=== PATIENT | female | born 1950 | race Caucasian/White ===

== ENCOUNTER 2017-02-24 09:53 | Outpatient (RCR) | payer MEDICARE, OTHER, SELFPAY ==
[2017-02-24 10:23] LABS: Color, Urine Yellow (Yellow); Glucose, Dipstick Normal (Normal); Ketone-Dipstick Negative (Negative); Leukocyte Esterase-Dipstick 500 /ul (Negative); Nitrite-Dipstick Negative (Negative); Occult Blood-Urine 25 /ul (Negative); Protein-Dipstick Negative (Negative); Urine Bilirubin Dipstick Negative (Negative); Urine Clarity Sl. Cloudy (Clear); Urine Urobilinogen Normal (Normal); Urine pH 6.5 (5.0 - 8.0)
[2017-02-24 10:30] LABS: Hematocrit 45.1 % (37-47); Hemoglobin 15.2 g/dl (12.0-15.0); Mean Corp Hgb Conc 33.7 g/gl (32-36); Mean Corpuscular Volume 94.9 fL (81-99); Platelet Count 113 K/mm3 (150-450); RBC Distribution Width CV 13.2 % (11.6-14.6); RBC Distribution Width SD 44.1 fl (35.1-43.9); Red Blood Count 4.75 M/mm3 (4.2-5.4); White Blood Count 3.8 K/mm3 (4.4-11.0)
[2017-02-24 10:34] LABS: Scan Indicated on CBC? Y/N NO
[2017-02-24 10:46] LABS: Albumin, Serum 3.8 g/dL (3.4-5.0); BUN 17 mg/dL (7-18); BUN/Creat Ratio 18.7 RATIO (10-20); Calcium,Total 9.1 mg/dL (8.5-10.1); Chloride 105 mmol/L (98-107); Creatinine, Serum 0.91 mg/dL (0.55-1.02); EST Glomerular Filtration Rate 65 mL/min (>60); Est Glom Filt Rate - Afr Amer 79 mL/min (>60); Glucose 137 mg/dL (70-110); Phosphorus 2.6 mg/dL (2.5-4.9); Potassium 4.3 mmol/L (3.5-5.1); Sodium Level 139 mmol/L (136-145)
[2017-02-24 11:00] LABS: Prograf-FK506 TO CCF/UNIV MAILED SPECIMEN
== END 2017-02-24 10:00 | disposition home or self-care (01) ==
LOC: LAB 09:53
PROVIDERS: Family Provider Family Medicine; PCP Family Medicine
DX: Z94.0 Kidney transplant status (principal); N39.0 Urinary tract infection, site not specified; D89.9 Disorder involving the immune mechanism, unspecified
CPT/HCPCS: 36415; 80069; 81002; 85027; 87077; 87086; 87088; 87186

== ENCOUNTER 2017-04-04 08:21 | Outpatient (RCR) | payer MEDICARE, OTHER, SELFPAY ==
[2017-04-04 10:54] LABS: Color, Urine Yellow (Yellow); Glucose, Dipstick Normal (Normal); Ketone-Dipstick Negative (Negative); Leukocyte Esterase-Dipstick 500 /ul (Negative); Nitrite-Dipstick Negative (Negative); Occult Blood-Urine 150 /ul (Negative); Protein-Dipstick 15 mg/dl (Negative); Specific Gravity, Urine 1.015 (1.002-1.030); Urine Bilirubin Dipstick Negative (Negative); Urine Clarity Cloudy (Clear); Urine Urobilinogen Normal (Normal); Urine pH 6.5 (5.0 - 8.0)
[2017-04-04 11:36] LABS: Hematocrit 43.6 % (37-47); Hemoglobin 14.5 g/dl (12.0-15.0); Mean Corp Hgb Conc 33.3 g/gl (32-36); Mean Corpuscular Hgb 31.9 pg (27.0-32.0); Mean Corpuscular Volume 95.8 fL (81-99); Mean Platelet Vol. 10.3 fl (6.2-12.0); Platelet Count 122 K/mm3 (150-450); RBC Distribution Width CV 13.1 % (11.6-14.6); RBC Distribution Width SD 45.5 fl (35.1-43.9); Red Blood Count 4.55 M/mm3 (4.2-5.4); Scan Indicated on CBC? Y/N NO; White Blood Count 3.6 K/mm3 (4.4-11.0)
[2017-04-04 12:03] LABS: Albumin, Serum 3.4 g/dL (3.2-5.0); BUN 13 mg/dL (7-18); Chloride 102 mmol/L (98-107); Creatinine, Serum 0.82 mg/dL (0.55-1.02); EST Glomerular Filtration Rate 74 mL/min (>60); Est Glom Filt Rate - Afr Amer 90 mL/min (>60); Glucose 102 mg/dL (74-106); Potassium 4.4 mmol/L (3.5-5.1); Sodium Level 137 mmol/L (136-145)
[2017-04-07 07:46] LABS: Tacrolimus (FK506) 5.4 ng/mL (2.0-20.0)
== END 2017-04-04 09:00 | disposition home or self-care (01) ==
LOC: LAB 08:21
PROVIDERS: Family Provider Family Medicine; PCP Family Medicine
DX: D89.9 Disorder involving the immune mechanism, unspecified (principal); N39.0 Urinary tract infection, site not specified; Z94.0 Kidney transplant status
CPT/HCPCS: 36415; 80069; 80197; 81002; 85027; 87077; 87086; 87088; 87186

== ENCOUNTER → 2017-04-10 09:18 | Outpatient (CLI) | payer MEDICARE, OTHER, SELFPAY ==
[2017-04-10 18:14] LABS: Color, Urine Yellow (Yellow); Glucose, Dipstick Normal (Normal); Ketone-Dipstick Negative (Negative); Leukocyte Esterase-Dipstick 500 /ul (Negative); Nitrite-Dipstick Negative (Negative); Occult Blood-Urine 50 /ul (Negative); Protein-Dipstick Negative (Negative); Specific Gravity, Urine 1.005 (1.002-1.030); Urine Bilirubin Dipstick Negative (Negative); Urine Clarity Sl. Cloudy (Clear); Urine Urobilinogen Normal (Normal)
== END ==
PROVIDERS: Family Provider Family Medicine; PCP Family Medicine
DX: N39.0 Urinary tract infection, site not specified (principal)
CPT/HCPCS: 81002; 87077; 87086; 87088; 87186

== ENCOUNTER 2017-05-12 07:07 | Outpatient (RCR) | payer MEDICARE, OTHER, SELFPAY ==
[2017-05-12 07:21] LABS: Mucous, Urine 0 SEEN /hpf (<or=2+); Red Blood Cells-Urine 0 SEEN /hpf (0-5); Squamous Epithelial Cells - UA 0 SEEN /hpf (5-10)
[2017-05-12 07:33] LABS: Hematocrit 40.7 % (37-47); Mean Corp Hgb Conc 34.4 g/gl (32-36); Mean Corpuscular Hgb 32.3 pg (27.0-32.0); Mean Corpuscular Volume 93.8 fL (81-99); Mean Platelet Vol. 9.5 fl (6.2-12.0); Platelet Count 113 K/mm3 (150-450); RBC Distribution Width CV 12.5 % (11.6-14.6); RBC Distribution Width SD 42.1 fl (35.1-43.9); Red Blood Count 4.34 M/mm3 (4.2-5.4); White Blood Count 2.9 K/mm3 (4.4-11.0)
[2017-05-12 07:34] LABS: Scan Indicated on CBC? Y/N NO
[2017-05-12 07:39] LABS: Color, Urine Yellow (Yellow); Glucose, Dipstick Normal (Normal); Ketone-Dipstick Negative (Negative); Leukocyte Esterase-Dipstick 500 /ul (Negative); Nitrite-Dipstick Negative (Negative); Occult Blood-Urine 10 /ul (Negative); Protein-Dipstick Negative (Negative); Urine Bilirubin Dipstick Negative (Negative); Urine Clarity Clear (Clear); Urine Urobilinogen Normal (Normal)
[2017-05-12 07:55] LABS: Bacteria 1+ /hpf (None Seen); White Blood Cells 10-25 SEEN /hpf (0-5)
[2017-05-12 07:58] LABS: Albumin, Serum 3.4 g/dL (3.2-5.0); BUN 13 mg/dL (7-18); BUN/Creat Ratio 14.9 RATIO (10-20); Calcium,Total 8.4 mg/dL (8.5-10.1); Chloride 105 mmol/L (98-107); Creatinine, Serum 0.87 mg/dL (0.55-1.02); EST Glomerular Filtration Rate 69 mL/min (>60); Est Glom Filt Rate - Afr Amer 83 mL/min (>60); Glucose 93 mg/dL (74-106); Phosphorus 3.1 mg/dL (2.5-4.9); Potassium 4.2 mmol/L (3.5-5.1); Sodium Level 137 mmol/L (136-145)
[2017-05-12 08:16] LABS: Prograf-FK506 TO CCF/UNIV MAILED SPECIMEN
== END 2017-05-12 08:00 | disposition home or self-care (01) ==
LOC: LAB 07:07
PROVIDERS: Family Provider Family Medicine; PCP Family Medicine
DX: D89.9 Disorder involving the immune mechanism, unspecified (principal); Z94.0 Kidney transplant status; N39.0 Urinary tract infection, site not specified
CPT/HCPCS: 36415; 80069; 81001; 85027; 87077; 87086; 87088; 87186

== ENCOUNTER 2017-10-07 08:36 | Outpatient (RCR) | payer MEDICARE, OTHER, SELFPAY ==
[2017-10-07 09:40] LABS: Prograf-FK506 TO CCF/UNIV MAILED SPECIMEN
[2017-10-07 09:41] LABS: Hematocrit 42.5 % (37-47); Mean Corp Hgb Conc 32.9 g/gl (32-36); Mean Corpuscular Hgb 31.4 pg (27.0-32.0); Mean Corpuscular Volume 95.3 fL (81-99); Mean Platelet Vol. 9.9 fl (6.2-12.0); Platelet Count 111 K/mm3 (150-450); RBC Distribution Width CV 13.1 % (11.6-14.6); Red Blood Count 4.46 M/mm3 (4.2-5.4); White Blood Count 3.6 K/mm3 (4.4-11.0)
[2017-10-07 09:43] LABS: Color, Urine Yellow (Yellow); Glucose, Dipstick Normal (Normal); Ketone-Dipstick Negative (Negative); Leukocyte Esterase-Dipstick 500 /ul (Negative); Nitrite-Dipstick Negative (Negative); Occult Blood-Urine 25 /ul (Negative); Protein-Dipstick 15 mg/dl (Negative); Urine Bilirubin Dipstick Negative (Negative); Urine Clarity Clear (Clear); Urine Urobilinogen Normal (Normal)
[2017-10-07 09:46] LABS: Scan Indicated on CBC? Y/N NO
[2017-10-07 10:02] LABS: Albumin, Serum 3.5 g/dL (3.2-5.0); BUN 16 mg/dL (7-18); BUN/Creat Ratio 16.6 RATIO (10-20); Chloride 99 mmol/L (98-107); Creatinine, Serum 0.96 mg/dL (0.55-1.02); EST Glomerular Filtration Rate 61 mL/min (>60); Est Glom Filt Rate - Afr Amer 74 mL/min (>60); Glucose 102 mg/dL (74-106); Phosphorus 2.9 mg/dL (2.5-4.9); Potassium 4.2 mmol/L (3.5-5.1); Sodium Level 137 mmol/L (136-145)
== END 2017-10-07 10:00 | disposition home or self-care (01) ==
LOC: LAB 08:36
PROVIDERS: Family Provider Family Medicine; PCP Family Medicine
DX: D89.9 Disorder involving the immune mechanism, unspecified (principal); N39.0 Urinary tract infection, site not specified; Z94.0 Kidney transplant status
CPT/HCPCS: 36415; 80069; 81002; 85027; 87077; 87086; 87088; 87186

== ENCOUNTER 2018-01-14 08:59 | Outpatient (RCR) | payer MEDICARE, OTHER, SELFPAY ==
[2018-01-14 10:29] LABS: Color, Urine Yellow (Yellow); Glucose, Dipstick Normal (Normal); Ketone-Dipstick Negative (Negative); Leukocyte Esterase-Dipstick 500 /ul (Negative); Nitrite-Dipstick Negative (Negative); Occult Blood-Urine 25 /ul (Negative); Protein-Dipstick Negative (Negative); Specific Gravity, Urine 1.005 (1.002-1.030); Urine Bilirubin Dipstick Negative (Negative); Urine Clarity Sl. Cloudy (Clear); Urine Urobilinogen Normal (Normal)
[2018-01-14 10:31] LABS: Hematocrit 44.2 % (37-47); Hemoglobin 14.6 g/dl (12.0-15.0); Mean Corpuscular Hgb 31.3 pg (27.0-32.0); Mean Corpuscular Volume 94.8 fL (81-99); Mean Platelet Vol. 9.7 fl (6.2-12.0); Platelet Count 124 K/mm3 (150-450); RBC Distribution Width SD 44.8 fl (35.1-43.9); Red Blood Count 4.66 M/mm3 (4.2-5.4); White Blood Count 2.9 K/mm3 (4.4-11.0)
[2018-01-14 10:41] LABS: Scan Indicated on CBC? Y/N NO
[2018-01-14 10:57] LABS: Albumin, Serum 3.5 g/dL (3.2-5.0); BUN 14 mg/dL (7-18); BUN/Creat Ratio 15.3 RATIO (10-20); Calcium,Total 9.2 mg/dL (8.5-10.1); Chloride 101 mmol/L (98-107); Creatinine, Serum 0.92 mg/dL (0.55-1.02); EST Glomerular Filtration Rate 65 mL/min (>60); Est Glom Filt Rate - Afr Amer 78 mL/min (>60); Glucose 92 mg/dL (74-106); Phosphorus 2.9 mg/dL (2.5-4.9); Sodium Level 137 mmol/L (136-145)
[2018-01-17 14:21] LABS: Tacrolimus (FK506) 3.9 ng/mL (2.0-20.0)
--- OUTSIDE RECORDS SUMMARY | 2018-03-11 14:52 | XMS RPT_ITS ---
:1950 Author Organization [place] Support Name Relationship Address Phone JOSE PORTER Unavailable [id number] + [place] [address] GASTON, MANOJ Unavailable [address] + [place] [address] R Unavailable Unavailable Unavailable PORTER, JOSE Unavailable [address] + [place] [address] GASTON, MANOJ Unavailable [address] + [place] [address] R Unavailable Unavailable Unavailable PORTER, JOSE Unavailable [address] + [place] [address] GASTON, MANOJ Unavailable [address] + [place] [address] R Unavailable Unavailable Unavailable PORTER, JOSE Unavailable Unavailable + PORTER, JOSE Unavailable Unavailable + PORTER, JOSE Unavailable Unavailable + PORTER, JOSE Unavailable Unavailable + PORTER, JOSE Unavailable [address] + [place] [address] GASTON, MANOJ Unavailable [address] + [place] [address] R Unavailable Unavailable Unavailable PORTER, JOSE Unavailable [address] + [place] [address] GASTON, MANOJ Unavailable [address] + [place] [address] R Unavailable Unavailable Unavailable PORTER, JOSE Unavailable [address] + [place] [address] GASTON, MANOJ Unavailable [address] + [place] [address] R Unavailable Unavailable Unavailable JOSE PORTER Unavailable [address] + [place] [address] MANOJ FELDMAN Unavailable [address] + [place] [address] R Unavailable Unavailable Unavailable Care Team Providers Name Role Phone MARIANA ZARATE Referring Unavailable Cebul III, Irineo Primary Care Unavailable MARIANA ZARATE Attending Unavailable MARIANA ZARATE Attending Unavailable Cebul III, Irineo Primary Care Unavailable MARIANA ZARATE Referring Unavailable MARIANA ZARATE Attending Unavailable MARIANA ZARATE Referring Unavailable Cebul III, Irineo Primary Care Unavailable MARIANA ZARATE Attending Unavailable Cebul III, Irineo Primary Care Unavailable MARIANA ZARATE Attending Unavailable MARIANA ZARATE Referring Unavailable Cebul III, Irineo Primary Care Unavailable MARIANA ZARATE Attending Unavailable MARIANA ZARATE Referring Unavailable Cebul III, Irineo Primary Care Unavailable MARIANA ZARATE Attending Unavailable MARIANA ZARATE Referring Unavailable Cebul III, Irineo Primary Care Unavailable Barbie, Dr. Amy Porter Admitting Unavailable Lemonotommy, Dr. Amy Porter Attending Unavailable Sarabu, Dr. Gonzalez Referring Unavailable Cebul III, Dr. Irineo Guerrero Primary Care Unavailable Lemonotommy, Dr. Amy Porter Attending Unavailable Cebul III, Dr. 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 Barbie Active Frederic diagnosis infection, site [facility] not specified / Repository N39.0(ICD-10) 05/27/2017 Final diagnosis Urinary tract Dr. Barbie [facility] (discharge) infection, site [facility] not specified / Repository N39.0(ICD-10) 05/20/2017 Final diagnosis Kidney transplant Dr. Barbie [facility] (discharge) status / [facility] Z94.0(ICD-10) Repository 05/20/2017 Final diagnosis Decreased white Dr. Barbie [facility] (discharge) blood cell count, [facility] unspecified / Repository D72.819(ICD-10) PROCEDURES PROCEDURES No Procedure Records FoundRESULTS RESULTS URINALYSIS, ROUTINE Collected: 01/14/2018 Status: F Source: [place] (DIPSTICK) 9:07 AM [facility] REPOSITORY Order Comment: How was Urine Obtained? CLEAN CATCH TYPE CODE TESTS RESULT OUT OF RANGE REFERENCE UNITS LAB L400.3000 Yellow COLOR Normal Yellow LAB L400.3050 Clear Normal CLARITY Sl. Cloudy LAB L400.3200 Normal mg/dl Normal GLUCOSE, UR Normal LAB L400.3300 Negative mg/dL Normal BILIRUBIN URINE Negative LAB L400.3400 Negative mg/dl Normal KETONE UR Negative LAB L400.3465 1.002-1.030 Normal SP.GR. DIPSTX 1.005 LAB L400.3550 5.0 - 8.0 pH UR Normal 7.0 LAB L400.3600 Negative mg/dl PROT Normal DIPSTX Negative LAB L400.3700 Normal mg/dl Normal UROBILI Normal LAB L400.3750 Negative Normal NITRITE UR Negative LAB L400.3780 Negative /ul High 25 OCCULT BLOOD-UR LAB L400.3800 Negative /ul High LEUK ESTERASE 500 Performed By: #### L400.2010 #### [facility] [address] [place], [address] CBC-COMPLETE BLOOD CNT Collected: 01/14/2018 Status: F Source: [place] NO DIFF 9:07 AM [facility] REPOSITORY TYPE CODE TESTS RESULT OUT OF RANGE REFERENCE UNITS LAB L100.1000 4.4-11.0 K/mm3 Low WBC 2.9 LAB L100.1200 4.2-5.4 M/mm3 Normal RBC 4.66 LAB L100.1300 12.0-15.0 g/dl Normal HGB 14.6 LAB L100.1400 37-47 % Normal HCT 44.2 LAB L100.1500 81-99 fL Normal MCV 94.8 LAB L100.1600 27.0-32.0 pg Normal MCH 31.3 LAB L100.1700 32-36 g/gl Normal MCHC 33.0 LAB L100.1810 11.6-14.6 % Normal RDW CV 13.0 LAB L100.1820 35.1-43.9 fl High RDW SD 44.8 LAB L100.1900 150-450 K/mm3 Low PLT 124 LAB L100.2000 6.2-12.0 fl Normal MPV 9.7 Performed By: #### L100.0500 #### [facility] [address] [place], [address] RENAL PROFILE Collected: 01/14/2018 Status: F Source: [place] 9:07 AM [facility] REPOSITORY TYPE CODE TESTS RESULT OUT OF RANGE REFERENCE UNITS LAB L501.0100 74-106 mg/dL Normal GLU 92 Result Comment: Please note revised GLUCOSE reference range effective 2017. LAB L501.1000 7-18 mg/dL Normal BUN 14 LAB L501.1100 0.55-1.02 mg/dL Normal CREAT,SERUM 0.92 Result Comment: The validity of the calculated GFR AND GFRAA in patients over 70 years has not been determined. Clinical correlation is essential. LAB L501.1110 >60 mL/min Normal EST GFR 65 Result Comment: Non- GFR Calc LAB L501.1115 >60 mL/min Normal EST GFR - AA 78 Result Comment: GFR Calc LAB L501.1300 10-20 RATIO Normal BUN/CRE 15.3 LAB L501.1800 3.2-5.0 g/dL Normal ALB 3.5 LAB L501.2200 8.5-10.1 mg/dL CA Normal 9.2 LAB L501.2300 2.5-4.9 mg/dL Normal PHOS 2.9 LAB L501.5300 136-145 mmol/L NA Normal 137 LAB L501.5600 3.5-5.1 mmol/L K Normal 4.0 LAB L501.5900 98-107 mmol/L CL Normal 101 LAB L501.6100 21.0-32.0 mmol/L Normal CO2 29.0 Performed By: #### L500.3600 #### [facility] [address] [place], [address] Observed: 01/14/2018 Status: F Source: [place] CULTURE, URINE 9:07 AM [facility] REPOSITORY Urine Culture ORGANISM 1: Mixed Gram Positive Organisms [place] Count 1000-10,000 MIX CULTURE Mixed contaminants. Submit a new specimen if indicated. Performed By: #### M100.0650 #### [facility] [address] [place], [address] TACROLIMUS (PROGRAF) Collected: 01/14/2018 Status: F Source: [place] 9:07 AM [facility] REPOSITORY TYPE CODE TESTS RESULT OUT OF RANGE REFERENCE UNITS LAB L3380.1100 2.0-20.0 ng/mL Normal TACROLIMUS 3.9 Result Comment: Trough (immediately following transplant) 15.0 Trough (steady state, 2 weeks or more after transplant): 3.0 - 8.0 Detection Limit = 1.0 Performed by LC-MS/MS technology. Performed at: [facility] [address] [id number] Director And Professor: Nelsy Iraheta MD, Phone: [phone] Performed By: #### L3380.1000 #### [facility] (refer to report for specific site) refer to report for address and phone number TACROLIMUS Collected: 10/10/2017 Status: F Source: [place] 12:00 AM [facility] REPOSITORY TYPE CODE TESTS RESULT OUT OF REFERENCE UNITS RANGE LAB FK506(LOIN 2.0 - 15.0 ng/mL C) TACROLIMUS 5.5 Result Comment: NOTE: Result was obtained using a chemiluminescent microparticle immunoassay (CMIA) on the [employer] i system. Optimal therapeutic ranges for immuno- suppressant drugs depend upon an individual patient's current clinical state, type of organ transplant, time post-transplant, co-administration of other immunosuppressants, and other clinical factors. The results of this test should be correlated with additional clinical and laboratory data before changes in treatment regimens are made. Performed By: #### FK506 #### [facility] [address] [place], [place] [id number] CBC-COMPLETE BLOOD CNT Collected: 10/07/2017 Status: F Source: [place] NO DIFF 8:40 AM [facility] REPOSITORY TYPE CODE TESTS RESULT OUT OF RANGE REFERENCE UNITS LAB L100.1000 4.4-11.0 K/mm3 Low WBC 3.6 LAB L100.1200 4.2-5.4 M/mm3 Normal RBC 4.46 LAB L100.1300 12.0-15.0 g/dl Normal HGB 14.0 LAB L100.1400 37-47 % Normal HCT 42.5 LAB L100.1500 81-99 fL Normal MCV 95.3 LAB L100.1600 27.0-32.0 pg Normal MCH 31.4 LAB L100.1700 32-36 g/gl Normal MCHC 32.9 LAB L100.1810 11.6-14.6 % Normal RDW CV 13.1 LAB L100.1820 35.1-43.9 fl High RDW SD 45.0 LAB L100.1900 150-450 K/mm3 Low PLT 111 LAB L100.2000 6.2-12.0 fl Normal MPV 9.9 Performed By: #### L100.0500 #### [facility] [address] [place], [address] URINALYSIS, ROUTINE Collected: 10/07/2017 Status: F Source: [place] (DIPSTICK) 8:40 AM [facility] REPOSITORY Order Comment: How was Urine Obtained? CLEAN CATCH TYPE CODE TESTS RESULT OUT OF RANGE REFERENCE UNITS LAB L400.3000 Yellow COLOR Normal Yellow LAB L400.3050 Clear Normal CLARITY Clear LAB L400.3200 Normal mg/dl Normal GLUCOSE, UR Normal LAB L400.3300 Negative mg/dL Normal BILIRUBIN URINE Negative LAB L400.3400 Negative mg/dl Normal KETONE UR Negative LAB L400.3465 1.002-1.030 Normal SP.GR. DIPSTX 1.010 LAB L400.3550 5.0 - 8.0 pH UR Normal 7.0 LAB L400.3600 Negative mg/dl High PROT 15 DIPSTX LAB L400.3700 Normal mg/dl Normal UROBILI Normal LAB L400.3750 Negative Normal NITRITE UR Negative LAB L400.3780 Negative /ul High 25 OCCULT BLOOD-UR LAB L400.3800 Negative /ul High [place] ESTERASE 500 Performed By: #### L400.2011 #### [facility] [address] [place], [address] RENAL PROFILE Collected: 10/07/2017 Status: F Source: [place] 8:40 AM [facility] REPOSITORY TYPE CODE TESTS RESULT OUT OF RANGE REFERENCE UNITS LAB L501.0100 74-106 mg/dL Normal GLU 102 Result Comment: Fasting Glucose result from 100 to 125 mg/dL suggests IMPAIRED HOMEOSTASIS per A.D.A. criteria. Please note revised GLUCOSE reference range effective 2017. LAB L501.1000 7-18 mg/dL Normal BUN 16 LAB L501.1100 0.55-1.02 mg/dL Normal CREAT,SERUM 0.96 Result Comment: The validity of the calculated GFR AND GFRAA in patients over 70 years has not been determined. Clinical correlation is essential. LAB L501.1110 >60 mL/min Normal EST GFR 61 Result Comment: Non- GFR Calc LAB L501.1115 >60 mL/min Normal EST GFR - AA 74 Result Comment: GFR Calc LAB L501.1300 10-20 RATIO Normal BUN/CRE 16.6 LAB L501.1800 3.2-5.0 g/dL Normal ALB 3.5 LAB L501.2200 8.5-10.1 mg/dL CA Normal 9.0 LAB L501.2300 2.5-4.9 mg/dL Normal PHOS 2.9 LAB L501.5300 136-145 mmol/L NA Normal 137 LAB L501.5600 3.5-5.1 mmol/L K Normal 4.2 LAB L501.5900 98-107 mmol/L CL Normal 99 LAB L501.6100 21.0-32.0 mmol/L Normal CO2 29.0 Performed By: #### L500.3600 #### [facility] [address] [place], [address] Observed: 10/07/2017 Status: F Source: [place] CULTURE, URINE 8:40 AM [facility] REPOSITORY Urine Culture ORGANISM 1: Streptococcus mitis/ oralis [place] Count >100,000 Streptococcus mitis/ oralis: REACTION Ampicillin $ <=0.25 S Benzylpenicillin NF 0.12 S Cefotaxime $ 0.5 S Ceftriaxone $ <=0.12 S Vancomycin $ 0.5 S (NF) indicates non-formulary drug at [facility]. Approval by Infectious Disease Specialist required before non-formulary drugs may be ordered and/or dispensed. * CLSI guidelines does not recommend testing of cephalosporins. This interpretation is deduced from Beta-lactam/penicillin results. Performed By: #### M100.0650 #### [facility] [address] [place], [address] US TRANSP KIDNEY Observed: 05/27/2017 Status: F Source: [place] 4:11 PM [facility] Patient Name: VIET PORTER STUDY: US TRANSP KIDNEY; US RENAL BILAT; 05/27/2017 4:11 pm INDICATION: Recurrent UTI; history of remote renal transplant. COMPARISON: Transplant renal ultrasound 06/01/2005; CT abdomen pelvis 06/06/2005 ACCESSION NUMBER(S): [id number]; [id number] ORDERING CLINICIAN: AMY SEGURA TECHNIQUE: Multiplanar grayscale and color/spectral doppler ultrasound images through the right iliac fossa were obtained at [facility] and submitted for interpretation on 05/27/2017 at [facility]. FINDINGS: There are numerous cystic lesions within the visualized portions of the inferior right hepatic lobe, incompletely evaluated on this study. The right kidney is not adequately visualized on this study. The left kidney is suboptimally evaluated this study. Multi-cystic structure within the region of the left renal fossa may represent a multi-cystic, atrophic kidney. The transplanted kidney is located in the right iliac fossa, demonstrates normal echogenicity, and measures 11.8 cm in craniocaudal dimension. There is no evidence of hydronephrosis. There is a 9 x 9 x 9 mm cyst within the transplant kidney. There is no evidence of perinephric fluid collection The main renal artery and vein are patent on Doppler images. The intrarenal vasculature within the transplant is intact. The intrarenal arterial resistive indices were as follows: Superior pole: 0.64 Midpole: 0.64 Inferior pole: 0.65 The peak systolic velocity at the arterial anastomosis is 115 cm/sec, and the upstream peak systolic velocity in the iliac artery before the anastomosis is 159 cm/sec. No significant bowel study gradient is noted along the course of the evaluated transplant renal artery. Velocity at the venous anastomosis is 22 cm/sec and the upstream velocity in the main renal vein before the anastomosis is 14 cm/sec. BLADDER: The bladder is distended and unremarkable in appearance. Prevoid volume is 336 mL. Postvoid volume is 31 mL. IMPRESSION: 1. Unremarkable grayscale and Doppler evaluation of the transplant kidney. No hydronephrosis. 2. Mild postvoid residual, as above. 3. Poor visualization of bilateral [place] kidneys, as above. Partially visualized multi-cystic liver. I personally reviewed the image(s)/study and resident interpretation. I agree with the findings as stated. Data analyzed and images interpreted at [facility], [place], [place]. Electronically signed by: SANJANA PARKS MD, PHD US RENAL BILAT Observed: 05/27/2017 Status: F Source: [place] 4:11 PM [facility] REPOSITORY Patient Name: VIET PORTER STUDY: US TRANSP KIDNEY; US RENAL BILAT; 05/27/2017 4:11 pm INDICATION: Recurrent UTI; history of remote renal transplant. COMPARISON: Transplant renal ultrasound 06/01/2005; CT abdomen pelvis 06/06/2005 ACCESSION NUMBER(S): [id number]; [id number] ORDERING CLINICIAN: AMY SEGURA TECHNIQUE: Multiplanar grayscale and color/spectral doppler ultrasound images through the right iliac fossa were obtained at [facility] and submitted for interpretation on 05/27/2017 at [facility]. FINDINGS: There are numerous cystic lesions within the visualized portions of the inferior right hepatic lobe, incompletely evaluated on this study. The right kidney is not adequately visualized on this study. The left kidney is suboptimally evaluated this study. Multi-cystic structure within the region of the left renal fossa may represent a multi-cystic, atrophic kidney. The transplanted kidney is located in the right iliac fossa, demonstrates normal echogenicity, and measures 11.8 cm in craniocaudal dimension. There is no evidence of hydronephrosis. There is a 9 x 9 x 9 mm cyst within the transplant kidney. There is no evidence of perinephric fluid collection The main renal artery and vein are patent on Doppler images. The intrarenal vasculature within the transplant is intact. The intrarenal arterial resistive indices were as follows: Superior pole: 0.64 Midpole: 0.64 Inferior pole: 0.65 The peak systolic velocity at the arterial anastomosis is 115 cm/sec, and the upstream peak systolic velocity in the iliac artery before the anastomosis is 159 cm/sec. No significant bowel study gradient is noted along the course of the evaluated transplant renal artery. Velocity at the venous anastomosis is 22 cm/sec and the upstream velocity in the main renal vein before the anastomosis is 14 cm/sec. BLADDER: The bladder is distended and unremarkable in appearance. Prevoid volume is 336 mL. Postvoid volume is 31 mL. IMPRESSION: 1. Unremarkable grayscale and Doppler evaluation of the transplant kidney. No hydronephrosis. 2. Mild postvoid residual, as above. 3. Poor visualization of bilateral [place] kidneys, as above. Partially visualized multi-cystic liver. I personally reviewed the image(s)/study and resident interpretation. I agree with the findings as stated. Data analyzed and images interpreted at [place], [place]. Electronically signed by: SANJANA PARKS MD, PHD URINALYSIS Collected: 05/20/2017 Status: F Source: [place] 9:50 AM [facility] REPOSITORY TYPE CODE TESTS RESULT OUT OF RANGE REFERENCE UNITS LAB COLU(LOIN STRAW,YELLOW C) COLOR YELLOW LAB APPRU(MAI CLEAR NC) APPEARANCE CLEAR LAB SPGRU(MAI 1.005 - 1.035 NC) SPECIFIC GRAVITY 1.008 LAB SOREN(LOINC 5.0 - 8.0 ) pH 6.0 LAB PROTU(MAI NEGATIVE mg/dL NC) PROTEIN NEGATIVE LAB GLUCU(MAI NEGATIVE mg/dL NC) GLUCOSE NEGATIVE LAB BLDU(LOIN NEGATIVE C) BLOOD Abnormal SMALL (1+) LAB KETU(LOIN NEGATIVE mg/dL C) KETONES NEGATIVE LAB BILIU(MAI NEGATIVE NC) BILIRUBIN NEGATIVE LAB UROU2(MAI 0.0 - 1.9 mg/dL NC) UROBILINOGEN <2.0 LAB NITRU(MAI NEGATIVE NC) NITRITE NEGATIVE LAB LEUKU(MAI NEGATIVE NC) LEUKOCYTE Abnormal ESTERASE LARGE (3+) Performed By: #### UA #### [facility] [address] [place] [address] UA MICROSCOPIC Collected: 05/20/2017 Status: F Source: [place] 9:50 AM [facility] RE[facility] TYPE CODE TESTS RESULT OUT OF RANGE REFERENCE UNITS LAB WBCUR(LOIN 0-5 /HPF C) Abnormal WBC 62 LAB WBCLU(LOIN /HPF C) WBC OCC CLUMPS LAB RBCUR(LOIN 0-5 /HPF C) RBC 2 Performed By: #### UAMIC #### [facility] [address] [place] [address] URINE Observed: 05/20/2017 Status: F Source: [place] CULTURE,BACTERIAL 9:50 AM [facility] REPOS[facility]ORY PATIENT: VIET PORTER [place] [facility] [place] [id number] : 46 AGE: SEX: F ORDERED BY: AMY SEGURA SOURCE: URINE COLLECTED: 05/20/17 09:50 ANTIBIOTICS AT [facility].: RECEIVED : 05/20/17 18:14 SITE: Clean Catch/Voided R E S U L T S URINE CULTURE,BACTERIAL FINAL 05/22/17 15:09 ISOLATE1 : Streptococcus viridans Group >100,000 CFU/ML Performed By: #### URINC #### [facility] [address] [place] [address] CBC AND DIFFERENTIAL Collected: 05/20/2017 Status: F Source: [place] 9:12 AM [facility] REPOSITORY TYPE CODE TESTS RESULT OUT OF REFERENCE UNITS RANGE LAB WBCR(LOINC 4.4 - 11.3 x10E9/L ) Low WBC 4.0 LAB NRBC(LOINC 0.0-0.0 /100 WBC ) NUCLEATED RBC 0.0 LAB RBCCT(LOIN 4.00 - 5.20 x10E12/L C) RBC 4.64 LAB HGB(LOINC) 12.0 - 16.0 g/dL HGB 14.8 LAB HCT(LOINC) 36.0 - 46.0 % HCT 43.6 LAB MCV(LOINC) 80 - 100 fL MCV 94 LAB MCHC2(LOIN 32.0 - 36.0 g/dL C) MCHC 33.9 LAB PLTCT(LOIN 150 - 450 x10E9/L C) Low PLT 139 LAB RDWCV(LOIN 11.5 - 14.5 % C) RDW-CV 12.5 LAB NEUT(LOINC 40.0 - 80.0 % ) % NEUTROPHIL 69.3 LAB IG(LOINC) 0.0 - 0.9 % % AUTOMATED 0.5 IMMATURE GRAN Result Comment: Percent differential counts (%) should be interpreted in the context of the absolute cell counts (cells/L). LAB LYMPH(LOINC) 13.0 - 44.0 % % LYMPHOCYTE 22.3 LAB MONO(LOINC) 2.0 - 10.0 % % MONOCYTE 6.6 LAB EOS(LOINC) 0.0 - 6.0 % % EOSINOPHIL 0.8 LAB BASO(LOINC) 0.0 - 2.0 % % BASOPHIL 0.5 LAB #NEUT(LOINC) 1.20 - 7.70 x10E9/L NEUTROPHIL 2.74 LAB #LYMP(LOINC) 1.20 - 4.80 x10E9/L LYMPHOCYTE Low 0.88 LAB #MONO(LOINC) 0.10 - 1.00 x10E9/L MONOCYTE 0.26 LAB #EOS(LOINC) 0.00 - 0.70 x10E9/L EOSINOPHIL 0.03 LAB #BASO(LOINC) 0.00 - 0.10 x10E9/L BASOPHIL 0.02 Performed By: #### CBCDF #### [facility] [address] [place] [address] RENAL FUNCTION PANEL Collected: 05/20/2017 Status: F Source: [place] 9:12 AM [facility] REPOSIT[facility] TYPE CODE TESTS RESULT OUT OF REFERENCE UNITS RANGE LAB GLU(LOINC) 74 - 99 mg/dL GLUCOSE High 127 LAB SOD(LOINC) 136 - 145 mmol/L SODIUM 137 LAB K(LOINC) 3.5 - 5.3 mmol/L POTASSIUM 4.6 LAB CHLOR(LOIN 98 - 107 mmol/L C) CHLORIDE 101 LAB BIC(LOINC) 21 - 32 mmol/L BICARBONATE 29 LAB ANGAP(LOIN 10 - 20 mmol/L C) ANION GAP 12 LAB UREA(LOINC 6 - 23 mg/dL ) UREA NITROGEN 16 LAB CREA(LOINC 0.50 - 1.05 mg/dL ) CREATININE 0.91 LAB GFRFN(LOIN >60 mL/min/1.7 C) 3m2 GFR-NON AM. >60 LAB GFRAA(LOIN >60 mL/min/1.7 C) 3m2 GFR- AM. >60 Result Comment: CALCULATIONS OF ESTIMATED GFR ARE PERFORMED USING THE MDRD STUDY EQUATION FOR THE IDMS-TRACEABLE CREATININE METHODS. CLIN CHEM 2007;53:766-72 LAB CA(LOINC) 8.6 - 10.6 mg/dL CALCIUM 9.6 LAB PHOS(LOINC) 2.5 - 4.9 mg/dL PHOSPHORUS 3.5 Result Comment: The performance characteristics of phosphorus testing in heparinized plasma have been validated by the individual laboratory site where testing is performed. Testing on heparinized plasma is not approved by the FDA; however, such approval is not necessary. LAB ALB(LOINC) 3.4 - 5.0 g/dL ALBUMIN 4.0 Performed By: #### RENAL #### [facility] [address] [place] [address] TACROLIMUS Collected: 05/20/2017 Status: F Source: [place] 9:12 AM [facility] REPOSITORY TYPE CODE TESTS RESULT OUT OF REFERENCE UNITS RANGE LAB FK506(LOIN 2.0 - 15.0 ng/mL C) TACROLIMUS 7.3 Result Comment: NOTE: Result was obtained using a chemiluminescent microparticle immunoassay (CMIA) on the [employer] i system. Optimal therapeutic ranges for immuno- suppressant drugs depend upon an individual patient's current clinical state, type of organ transplant, time post-transplant, co-administration of other immunosuppressants, and other clinical factors. The results of this test should be correlated with additional clinical and laboratory data before changes in treatment regimens are made. Performed By: #### FK506 #### [facility] [address] [place], [place] [id number] RENAL FUNCTION PANEL Collected: 05/16/2017 Status: CANCELLED Source: [place] 12:00 AM [facility] REPOSITORY Order Comment: TEST RENAL FUNCTION PANEL WAS CANCELLED, 05/16/2017 16:48 NO SPECIMEN RECEIVED IN LAB,NO SST. TYPE CODE TESTS RESULT OUT OF REFERENCE UNITS RANGE LAB GLU(LOINC) GLUCOSE Canceled LAB SOD(LOINC) SODIUM Canceled LAB K(LOINC) POTASSIUM Canceled LAB CHLOR(LOIN C) CHLORIDE Canceled LAB BIC(LOINC) BICARBONATE Canceled LAB ANGAP(LOIN C) ANION GAP Canceled LAB UREA(LOINC ) UREA NITROGEN Canceled LAB CREA(LOINC ) CREATININE Canceled LAB GFRFN(LOIN C) GFR-NON AM. Canceled LAB GFRAA(LOIN C) GFR- AM. Canceled Result Comment: CALCULATIONS OF ESTIMATED GFR ARE PERFORMED USING THE MDRD STUDY EQUATION FOR THE IDMS-TRACEABLE CREATININE METHODS. CLIN CHEM 2007;53:766-72 LAB CA(LOINC) CALCIUM Canceled LAB PHOS(LOINC) PHOSPHORUS Canceled Result Comment: The performance characteristics of phosphorus testing in heparinized plasma have been validated by the individual laboratory site where testing is performed. Testing on heparinized plasma is not approved by the FDA; however, such approval is not necessary. LAB ALB(LOINC) Canceled ALBUMIN Performed By: #### RENAL #### [facility] [address] [facility] [place] [address] CBC Collected: 05/16/2017 Status: F Source: [place] 12:00 [facility] [address] REPOSITORY TYPE CODE TESTS RESULT OUT OF REFERENCE UNITS RANGE LAB WBCR(LOINC 4.4 - 11.3 x10E9/L ) Low WBC 2.9 LAB NRBC(LOINC 0.0-0.0 /100 WBC ) NUCLEATED RBC 0.0 LAB RBCCT(LOIN 4.00 - 5.20 x10E12/L C) RBC 4.48 LAB HGB(LOINC) 12.0 - 16.0 g/dL HGB 14.3 LAB HCT(LOINC) 36.0 - 46.0 % HCT High 50.7 LAB MCV(LOINC) 80 - 100 fL MCV High 113 LAB MCHC2(LOIN 32.0 - 36.0 g/dL C) Low MCHC 28.2 LAB PLTCT(LOIN 150 - 450 x10E9/L C) Low PLT 114 LAB RDWCV(LOIN 11.5 - 14.5 % C) RDW-CV 14.0 Performed By: #### CBC #### [facility] [address] [address] TACROLIMUS Collected: 05/16/2017 Status: F Source: [place] 12:00 [facility] [address] REPOSITORY TYPE CODE TESTS RESULT OUT OF REFERENCE UNITS RANGE LAB FK506(LOIN 2.0 - 15.0 ng/mL C) High TACROLIMUS 19.5 Result Comment: NOTE: Result was obtained using a chemiluminescent microparticle immunoassay (CMIA) on the [employer] i system. Optimal therapeutic ranges for immuno- suppressant drugs depend upon an individual patient's current clinical state, type of organ transplant, time post-transplant, co-administration of other immunosuppressants, and other clinical factors. The results of this test should be correlated with additional clinical and laboratory data before changes in treatment regimens are made. Performed By: #### FK506 #### [facility] [id number] [place], [place] [id number] CBC-COMPLETE BLOOD CNT Collected: 05/12/2017 Status: F Source: [place] NO DIFF 7:16 AM [facility] REPOSITORY TYPE CODE TESTS RESULT OUT OF RANGE REFERENCE UNITS LAB L100.1000 4.4-11.0 K/mm3 Low WBC 2.9 LAB L100.1200 4.2-5.4 M/mm3 Normal RBC 4.34 LAB L100.1300 12.0-15.0 g/dl Normal HGB 14.0 LAB L100.1400 37-47 % Normal HCT 40.7 LAB L100.1500 81-99 fL Normal MCV 93.8 LAB L100.1600 27.0-32.0 pg High MCH 32.3 LAB L100.1700 32-36 g/gl Normal MCHC 34.4 LAB L100.1810 11.6-14.6 % Normal RDW CV 12.5 LAB L100.1820 35.1-43.9 fl Normal RDW SD 42.1 LAB L100.1900 150-450 K/mm3 Low PLT 113 LAB L100.2000 6.2-12.0 fl Normal MPV 9.5 Performed By: #### L100.0500 #### [facility] [address] [place], [address] URINALYSIS, COMPLETE Collected: 05/12/2017 Status: F Source: [place] 7:16 AM [facility] REPOSITORY Order Comment: URINE COLLECTED @ HOME AROUND 0600. How was Urine Obtained? CLEAN CATCH TYPE CODE TESTS RESULT OUT OF RANGE REFERENCE UNITS LAB L400.3000 Yellow COLOR Normal Yellow LAB L400.3050 Clear Normal CLARITY Clear LAB L400.3200 Normal mg/dl Normal GLUCOSE, UR Normal LAB L400.3300 Negative mg/dL Normal BILIRUBIN URINE Negative LAB L400.3400 Negative mg/dl Normal KETONE UR Negative LAB L400.3465 1.002-1.030 Normal SP.GR. DIPSTX 1.010 LAB L400.3550 5.0 - 8.0 pH UR Normal 7.0 LAB L400.3600 Negative mg/dl PROT Normal DIPSTX Negative LAB L400.3700 Normal mg/dl Normal UROBILI Normal LAB L400.3750 Negative Normal NITRITE UR Negative LAB L400.3780 Negative /ul High 10 OCCULT BLOOD-UR LAB L400.3800 Negative /ul High LEUK ESTERASE 500 LAB L400.4050 0-5 /hpf WBC Normal 10-25 SEEN LAB L400.4100 0-5 /hpf 0 Normal RBC-UA SEEN LAB L400.4150 5-10 /hpf SQUAM 0 Normal EPI SEEN LAB L400.4300 None Seen /hpf 1+ Normal BACTERIA LAB L400.4350 <or=2+ /hpf 0 Normal MUCUS, URINE SEEN Performed By: #### L400.0001 #### [facility] [address] [place], [address] RENAL PROFILE Collected: 05/12/2017 Status: F Source: [place] 7:16 AM [facility] REPOSITORY TYPE CODE TESTS RESULT OUT OF RANGE REFERENCE UNITS LAB L501.0100 74-106 mg/dL Normal GLU 93 Result Comment: Please note revised GLUCOSE reference range effective 2017. LAB L501.1000 7-18 mg/dL Normal BUN 13 LAB L501.1100 0.55-1.02 mg/dL Normal CREAT,SERUM 0.87 Result Comment: The validity of the calculated GFR AND GFRAA in patients over 70 years has not been determined. Clinical correlation is essential. LAB L501.1110 >60 mL/min Normal EST GFR 69 Result Comment: Non- GFR Calc LAB L501.1115 >60 mL/min Normal EST GFR - AA 83 Result Comment: GFR Calc LAB L501.1300 10-20 RATIO Normal BUN/CRE 14.9 LAB L501.1800 3.2-5.0 g/dL Normal ALB 3.4 LAB L501.2200 8.5-10.1 mg/dL Low CA 8.4 LAB L501.2300 2.5-4.9 mg/dL Normal PHOS 3.1 LAB L501.5300 136-145 mmol/L NA Normal 137 LAB L501.5600 3.5-5.1 mmol/L K Normal 4.2 LAB L501.5900 98-107 mmol/L CL Normal 105 LAB L501.6100 21.0-32.0 mmol/L Normal CO2 27.0 Performed By: #### L500.3600 #### [facility] [address] [place], [place], [id number] Observed: 05/12/2017 Status: F Source: [place] CULTURE, URINE 7:16 AM [facility] REPOSITORY URINE COLLECTED @ HOME AROUND 0600. Urine Culture ORGANISM 1: Streptococcus mitis/ oralis [place] Count >100,000 Streptococcus mitis/ oralis: REACTION Ampicillin $ <=0.25 S Benzylpenicillin NF <=0.06 S Cefotaxime $ <=0.12 S Ceftriaxone $ <=0.12 S Levofloxacin $ >=16 R Tetracycline NF 0.5 S Vancomycin $ 0.5 S (NF) indicates non-formulary drug at [facility]. Approval by Infectious Disease Specialist required before non-formulary drugs may be ordered and/or dispensed. * CLSI guidelines does not recommend testing of cephalosporins. This interpretation is deduced from Beta-lactam/penicillin results. Performed By: #### M100.0650 #### [facility] [address] [place], [address] URINALYSIS, ROUTINE Collected: 04/10/2017 Status: F Source: [place] (DIPSTICK) 9:30 AM [facility] REPOSITORY Order Comment: URINE IS IN THE LAB THEY ADDED THIS How was Urine Obtained? CLEAN CATCH TYPE CODE TESTS RESULT OUT OF RANGE REFERENCE UNITS LAB L400.3000 Yellow COLOR Normal Yellow LAB L400.3050 Clear Normal CLARITY Sl. Cloudy LAB L400.3200 Normal mg/dl Normal GLUCOSE, UR Normal LAB L400.3300 Negative mg/dL Normal BILIRUBIN URINE Negative LAB L400.3400 Negative mg/dl Normal KETONE UR Negative LAB L400.3465 1.002-1.030 Normal SP.GR. DIPSTX 1.005 LAB L400.3550 5.0 - 8.0 pH UR Normal 7.0 LAB L400.3600 Negative mg/dl PROT Normal DIPSTX Negative LAB L400.3700 Normal mg/dl Normal UROBILI Normal LAB L400.3750 Negative Normal NITRITE UR Negative LAB L400.3780 Negative /ul High 50 OCCULT BLOOD-UR LAB L400.3800 Negative /ul High LEUK ESTERASE 500 Performed By: #### L400.2010 #### [facility] [address] [place], [address] Observed: 04/10/2017 Status: F Source: [place] CULTURE, URINE 9:30 AM [facility] REPOSITORY Urine Culture ORGANISM 1: Streptococcus mitis/ oralis [place] Count >100,000 Streptococcus mitis/ oralis: REACTION Ampicillin $ <=0.25 S Benzylpenicillin NF <=0.06 S Cefotaxime $ <=0.12 S Ceftriaxone $ <=0.12 S Levofloxacin $ >=16 R Tetracycline NF 0.5 S Vancomycin $ 0.5 S (NF) indicates non-formulary drug at [facility]. Approval by Infectious Disease Specialist required before non-formulary drugs may be ordered and/or dispensed. * CLSI guidelines does not recommend testing of cephalosporins. This interpretation is deduced from Beta-lactam/penicillin results. Performed By: #### M100.0650 #### [facility] [address] [place], [place], [id number] URINALYSIS, ROUTINE Collected: 04/04/2017 Status: F Source: [place] (DIPSTICK) 8:33 AM [facility] REPOSITORY Order Comment: How was Urine Obtained? CLEAN CATCH TYPE CODE TESTS RESULT OUT OF RANGE REFERENCE UNITS LAB L400.3000 Yellow COLOR Normal Yellow LAB L400.3050 Clear Normal CLARITY Cloudy LAB L400.3200 Normal mg/dl Normal GLUCOSE, UR Normal LAB L400.3300 Negative mg/dL Normal BILIRUBIN URINE Negative LAB L400.3400 Negative mg/dl Normal KETONE UR Negative LAB L400.3465 1.002-1.030 Normal SP.GR. DIPSTX 1.015 LAB L400.3550 5.0 - 8.0 pH UR Normal 6.5 LAB L400.3600 Negative mg/dl High PROT 15 DIPSTX LAB L400.3700 Normal mg/dl Normal UROBILI Normal LAB L400.3750 Negative Normal NITRITE UR Negative LAB L400.3780 Negative /ul High OCCULT BLOOD-UR 150 LAB L400.3800 Negative /ul High [place] ESTERASE 500 Performed By: #### L400.2010 #### [facility] [address] [place], [place], [address] CBC-COMPLETE BLOOD CNT Collected: 04/04/2017 Status: F Source: [place] NO DIFF 8:33 AM [facility] REPOSITORY TYPE CODE TESTS RESULT OUT OF RANGE REFERENCE UNITS LAB L100.1000 4.4-11.0 K/mm3 Low WBC 3.6 LAB L100.1200 4.2-5.4 M/mm3 Normal RBC 4.55 LAB L100.1300 12.0-15.0 g/dl Normal HGB 14.5 LAB L100.1400 37-47 % Normal HCT 43.6 LAB L100.1500 81-99 fL Normal MCV 95.8 LAB L100.1600 27.0-32.0 pg Normal MCH 31.9 LAB L100.1700 32-36 g/gl Normal MCHC 33.3 LAB L100.1810 11.6-14.6 % Normal RDW CV 13.1 LAB L100.1820 35.1-43.9 fl High RDW SD 45.5 LAB L100.1900 150-450 K/mm3 Low PLT 122 LAB L100.2000 6.2-12.0 fl Normal MPV 10.3 Performed By: #### L100.0500 #### [facility] [address] [place], [place], [id number] RENAL PROFILE Collected: 04/04/2017 Status: F Source: [place] 8:33 AM [facility] REPOSITORY TYPE CODE TESTS RESULT OUT OF RANGE REFERENCE UNITS LAB L501.0100 74-106 mg/dL Normal GLU 102 Result Comment: Fasting Glucose result from 100 to 125 mg/dL suggests IMPAIRED HOMEOSTASIS per A.D.A. criteria. Please note revised GLUCOSE reference range effective 2017. LAB L501.1000 7-18 mg/dL Normal BUN 13 LAB L501.1100 0.55-1.02 mg/dL Normal CREAT,SERUM 0.82 Result Comment: The validity of the calculated GFR AND GFRAA in patients over 70 years has not been determined. Clinical correlation is essential. LAB L501.1110 >60 mL/min Normal EST GFR 74 Result Comment: Non- GFR Calc LAB L501.1115 >60 mL/min Normal EST GFR - AA 90 Result Comment: GFR Calc LAB L501.1300 10-20 RATIO Normal BUN/CRE 16.0 LAB L501.1800 3.2-5.0 g/dL Normal ALB 3.4 LAB L501.2200 8.5-10.1 mg/dL CA Normal 9.0 LAB L501.2300 2.5-4.9 mg/dL Normal PHOS 3.0 LAB L501.5300 136-145 mmol/L NA Normal 137 LAB L501.5600 3.5-5.1 mmol/L K Normal 4.4 LAB L501.5900 98-107 mmol/L CL Normal 102 LAB L501.6100 21.0-32.0 mmol/L Normal CO2 26.0 Performed By: #### L500.3600 #### [facility] [address] [place], [place], [id number] Observed: 04/04/2017 Status: F Source: [place] CULTURE, URINE 8:33 AM [facility] REPOSITORY Urine Culture ORGANISM 1: Streptococcus mitis/ oralis [place] Count >100,000 Streptococcus mitis/ oralis: REACTION Ampicillin $ <=0.25 S Benzylpenicillin NF <=0.06 S Cefotaxime $ <=0.12 S Ceftriaxone $ <=0.12 S Levofloxacin $ >=16 R Tetracycline NF 0.5 S Vancomycin $ 0.5 S (NF) indicates non-formulary drug at [facility]. Approval by Infectious Disease Specialist required before non-formulary drugs may be ordered and/or dispensed. * CLSI guidelines does not recommend testing of cephalosporins. This interpretation is deduced from Beta-lactam/penicillin results. Performed By: #### M100.0650 #### [facility] [address] [place], [place], [address] TACROLIMUS (PROGRAF) Collected: 04/04/2017 Status: F Source: [place] 8:33 AM [facility] REPOSITORY TYPE CODE TESTS RESULT OUT OF RANGE REFERENCE UNITS LAB L3380.1100 2.0-20.0 ng/mL Normal TACROLIMUS 5.4 Result Comment: Trough (immediately following transplant) 15.0 Trough (steady state, 2 weeks or more after transplant): 3.0 - 8.0 Detection Limit = 1.0 Performed by LC-MS/MS technology. Performed at: [facility] [address] [id number] Director And Professor: Arturo Luu MD, Phone: [phone] Performed By: #### L3380.1000 #### [facility] (refer to report for specific site) refer to report for address and phone number PROGRESS Observed: 03/14/2017 Status: COMPLETED Source: [place] 11:05 AM [facility] [place] REPOSITORY HNO ID: [id number] Author: Alla Knott Service: (none) Author Type: Nurse Practitioner Type: Progress Notes Filed: 03/14/2017 11:08 AM Note Text: HPI Pt presents with 2 day hx dysuria. Denies fever, chills, abd/back/flank pain. Hx kidney transplant. States had f/u with public speaker last week and urine had a few WBC noted. Was encouraged to drink fluids. States all labs were WNL. Pt requests copy of today's visit faxed to public speaker. Review of Systems Constitutional: Negative for chills and fever. Gastrointestinal: Negative for abdominal pain and nausea. Genitourinary: Positive for dysuria and frequency. Negative for flank pain, hematuria and urgency. Musculoskeletal: Negative for back pain. Physical Exam Constitutional: She is oriented to person, place, and time and well-developed, well-nourished, and in no distress. No distress. Abdominal: There is no CVA tenderness. Neurological: She is alert and oriented to person, place, and time. Skin: Skin is warm and dry. She is not diaphoretic. 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 - Essential hypertension, benign - Heart murmur side effect of transplant - History of renal transplant 11/20/2011 - Iron deficiency anemia secondary to blood loss (chronic) - Polycystic kidney, unspecified type PAST SURGICAL HISTORY Procedure Laterality Date - APPENDECTOMY 1971 - COLONOS W/REM POLYP SNARE - EGD W/O OR W/BRUSH/WASH 03/15/05 EGD - OPEN RX ANKLE DISLOCATN+FIXATN 10/23/2012 ORIF Ankle - PAST SURGICAL HISTORY OF 1996 kidney transplant - PAST SURGICAL HISTORY OF 1993 partial hepatectomy - PAST SURGICAL HISTORY OF 1973 ileum removed/infection ALLERGIES Augmentin [Amoxicillin-Pot Clavulanate] MEDICATIONS tacrolimus (PROGRAF) 1 mg capsule Take 1 capsule by mouth twice daily. CRANBERRY EXTRACT (CRANBERRY CONCENTRATE ORAL) Take by mouth. mycophenolate mofetil (CELLCEPT) 250 mg capsule Take 1 capsule by mouth once daily. CALCIUM 600 600 MG TAB ciprofloxacin HCl (CIPRO) 250 mg tablet Take 1 tablet by mouth twice daily for 5 days. FAMILY HISTORY Problem Relation Age of Onset - Diabetes Mother heart - Hypertension Father polycystic kidney/heart - Diabetes Brother - None Sister - None Sister - None Sister - None Sister - None Sister - Cancer Brother - myocardial infarction [Other] [OTHER] Mother - myocardial infarction [Other] [OTHER] Father Social History Substance Use Topics - Smoking status: Never Smoker - Smokeless tobacco: Never Used - Alcohol use No ASSESSMENT/PLAN: 1. Acute cystitis with hematuria - ICD9: 595.0, ICD10: N30.01 (primary diagnosis) - CIPROFLOXACIN 250 MG TABLET 2. Burning with urination - ICD9: 788.1, ICD10: R30.0 acute - UA positive for robert esterase, hematuria and nitrates - Send urine for culture - Patient education for prevention given - URINE CULTURE - UA DIP B/O The patient is instructed to return or seek emergency treatment if symptoms become worse or with any acute change in condition. The patient verbalizes understanding and is in agreement with plan of care. Alla Knott CNP Observed: 03/14/2017 Status: F Source: [place] URINE CULTURE 10:43 AM [facility] REPOSITORY Sp. Request/Comment: - Specimen received in preservative Culture Result - <10,000 CFU/ml Normal urogenital shai Performed By: #### URCUL #### [facility] [address] [place], [place] [address] CNOV Observed: 03/14/2017 Status: COMPLETED Source: OL[place] 10:00 AM [facility] REPOSITORY Office Visit (WSTR) CHARLOTTEVIET Wilcox ([id number]) 1950 F Date Time Provider Department 03/14/17 10:00 AM ALLA KNOTT [facility] During your visit today, we recorded the following information about you: Temperature Pulse Respiration Blood pressure 97.1 degrees 76/minute 20/minute 130/96 Weight 59.4 kg Alla Knott CNP 03/14/2017 10:44 AM Signed Patient Education for Female Urinary Tract Infections Possible complications: Pyelonehritis Renal abscess Expected course/prognosis: * symptoms resolve within 2-3 days after starting treatment in almost all patients * one-fourth of women with simple UTI experience a second UTI within 6 months, and half at some time during lifetime. * patients with multiple recurrent UTI and no underlying urinary tract abnormality may receive long-term prophylactic antibioitic treatment. Trimethoprim-sulfamethoxazole and nitrofurantoin common used. * women with frequent or intercourse-related UTI should empty bladder immediately before and following intercourse and consider postcoital antibiotic treament Instructions: * Maintain good hydration * Avoid sexual intercourse when symptoms present *Take antibiotic as directed * Return if symptoms not resolved or markedly improved within 48 hours * Return if fever, chills, or flank pain develop * If taking prophylactic antiobiotics, take at bedtime * Take showers instead of tub baths * Avoid feminine hygiene sprays and scented douches * Wipe urethra from front to back Please call or return to the office if you are not feeling better in 5-7 days. You can try taking OTC Uristat (pyridium) if needed for burning. Beware that it will turn your urine orange/red. Alla Knott CNP 03/14/2017 11:08 AM Signed HPI Pt presents with 2 day hx dysuria. Denies fever, chills, abd/back/flank pain. Hx kidney transplant. States had f/u with public speaker last week and urine had a few WBC noted. Was encouraged to drink fluids. States all labs were WNL. Pt requests copy of today's visit faxed to public speaker. Review of Systems Constitutional: Negative for chills and fever. Gastrointestinal: Negative for abdominal pain and nausea. Genitourinary: Positive for dysuria and frequency. Negative for flank pain, hematuria and urgency. Musculoskeletal: Negative for back pain. Physical Exam Constitutional: She is oriented to person, place, and time and well-developed, well-nourished, and in no distress. No distress. Abdominal: There is no CVA tenderness. Neurological: She is alert and oriented to person, place, and time. Skin: Skin is warm and dry. She is not diaphoretic. 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 - Essential hypertension, benign - Heart murmur side effect of transplant - History of renal transplant 11/20/2011 - Iron deficiency anemia secondary to blood loss (chronic) - Polycystic kidney, unspecified type PAST SURGICAL HISTORY Procedure Laterality Date - APPENDECTOMY 1971 - COLONOS W/REM POLYP SNARE / - EGD W/O OR W/BRUSH/WASH 03/15/05 EGD - OPEN RX ANKLE DISLOCATN+FIXATN 10/23/2012 ORIF Ankle - PAST SURGICAL HISTORY OF 1996 kidney transplant - PAST SURGICAL HISTORY OF 1993 partial hepatectomy - PAST SURGICAL HISTORY OF 1973 ileum removed/infection ALLERGIES Augmentin [Amoxicillin-Pot Clavulanate] MEDICATIONS tacrolimus (PROGRAF) 1 mg capsule Take 1 capsule by mouth twice daily. CRANBERRY EXTRACT (CRANBERRY CONCENTRATE ORAL) Take by mouth. mycophenolate mofetil (CELLCEPT) 250 mg capsule Take 1 capsule by mouth once daily. CALCIUM 600 600 MG TAB ciprofloxacin HCl (CIPRO) 250 mg tablet Take 1 tablet by mouth twice daily for 5 days. FAMILY HISTORY Problem Relation Age of Onset - Diabetes Mother heart - Hypertension Father polycystic kidney/heart - Diabetes Brother - None Sister - None Sister - None Sister - None Sister - None Sister - Cancer Brother - myocardial infarction [Other] [OTHER] Mother - myocardial infarction [Other] [OTHER] Father Social History Substance Use Topics - Smoking status: Never Smoker - Smokeless tobacco: Never Used - Alcohol use No ASSESSMENT/PLAN: 1. Acute cystitis with hematuria - ICD9: 595.0, ICD10: N30.01 (primary diagnosis) - CIPROFLOXACIN 250 MG TABLET 2. Burning with urination - ICD9: 788.1, ICD10: R30.0 acute - UA positive for robert esterase, hematuria and nitrates - Send urine for culture - Patient education for prevention given - URINE CULTURE - UA DIP B/O The patient is instructed to return or seek emergency treatment if symptoms become worse or with any acute change in condition. The patient verbalizes understanding and is in agreement with plan of care. Alla Knott CNP Referring Provider: SELF [[id number]] Allergies As of Date: 03/14/2017 Noted Allergy Reaction AUGMENTIN (AMOXICILLIN-POT CLAVUL*01/21/2005 Date Reviewed: 03/14/2017 Reviewed by: Fior Dubon LPN - Fully Assessed Reason for Visit: Urinary Problem [252] Cmt: Burning with urination x 3 day Primary Visit Diagnosis:Acute cystitis with hematuria [N30.01] Other Visit Diagnosis:Burning with urination [R30.0] Order(s):URINE CULTURE [SQURCUL] Order #: [id number] UA DIP B/O [[id number]] Order #: [id number] ciprofloxacin HCl (CIPRO) 250 mg tabletTake 1 tablet by mouth twice daily for 5 days.Disp: 10 tabletRfl: 0 Prescriptions as of 03/14/2017 Sig: TACROLIMUS 1 MG CAPSULE Take 1 capsule by mouth twice* CRANBERRY CONCENTRATE ORAL Take by mouth. MYCOPHENOLATE MOFETIL 250 MG * Take 1 capsule by mouth once * * CALCIUM 600 600 MG TABLET CIPROFLOXACIN 250 MG TABLET Take 1 tablet by mouth twice * Problem List As Of Date 03/14/2017 Noted Resolved BENIGN HYPERTENSION [I10] ESOPHAGEAL REFLUX [K21.9] CHR BLOOD LOSS ANEMIA [D50.0] Polycystic kidney [Q61.3] Acute gastritis without mention of hemorrhage [*INVALID FOR*03/02/2015 Bleeding esophageal varices (HCC) [I85.01] INVALID FOR*03/01/2016 BENIGN NEOPLASM LG BOWEL [D12.6] DIARRHEA NOS [R19.7] Esophageal varices (HCC) [I85.00] History of renal transplant [Z94.0] INVALID FOR* Immunosuppression (HCC) [D89.9] INVALID FOR* Neutropenia (HCC) [D70.9] INVALID FOR* Other instructions from your clinician: Patient Education for Female Urinary Tract Infections Possible complications: Pyelonehritis Renal abscess Expected course/prognosis: * symptoms resolve within 2-3 days after starting treatment in almost all patients * one-fourth of women with simple UTI experience a second UTI within 6 months, and half at some time during lifetime. * patients with multiple recurrent UTI and no underlying urinary tract abnormality may receive long-term prophylactic antibioitic treatment. Trimethoprim-sulfamethoxazole and nitrofurantoin common used. * women with frequent or intercourse-related UTI should empty bladder immediately before and following intercourse and consider postcoital antibiotic treament Instructions: * Maintain good hydration * Avoid sexual intercourse when symptoms present *Take antibiotic as directed * Return if symptoms not resolved or markedly improved within 48 hours * Return if fever, chills, or flank pain develop * If taking prophylactic antiobiotics, take at bedtime * Take showers instead of tub baths * Avoid feminine hygiene sprays and scented douches * Wipe urethra from front to back Please call or return to the office if you are not feeling better in 5-7 days. You can try taking OTC Uristat (pyridium) if needed for burning. Beware that it will turn your urine orange/red. Prescriptions ordered this encounter Disp Refills Start End CIPROFLOXACIN 250 MG TABLET 10 t* 0 03/14/2017 03/19/2017 Route: ORAL Sig: Take 1 tablet by mouth twice daily for 5 days. Encounter Status:Closed by ALLA KNOTT CNP on 03/14/17 URINALYSIS, ROUTINE Collected: 02/24/2017 Status: F Source: [place] (DIPSTICK) 10:00 AM [facility] REPOSITORY Order Comment: How was Urine Obtained? CLEAN CATCH TYPE CODE TESTS RESULT OUT OF RANGE REFERENCE UNITS LAB L400.3000 Yellow COLOR Normal Yellow LAB L400.3050 Clear Normal CLARITY Sl. Cloudy LAB L400.3200 Normal mg/dl Normal GLUCOSE, UR Normal LAB L400.3300 Negative mg/dL Normal BILIRUBIN URINE Negative LAB L400.3400 Negative mg/dl Normal KETONE UR Negative LAB L400.3465 1.002-1.030 Normal SP.GR. DIPSTX 1.010 LAB L400.3550 5.0 - 8.0 pH UR Normal 6.5 LAB L400.3600 Negative mg/dl PROT Normal DIPSTX Negative LAB L400.3700 Normal mg/dl Normal UROBILI Normal LAB L400.3750 Negative Normal NITRITE UR Negative LAB L400.3780 Negative /ul High 25 OCCULT BLOOD-UR LAB L400.3800 Negative /ul High LEUK ESTERASE 500 Performed By: #### L400.2010 #### [facility] [address] [place], [place], [id number] CBC-COMPLETE BLOOD CNT Collected: 02/24/2017 Status: F Source: ESTHER NO DIFF 10:00 AM [facility] REPOSITORY TYPE CODE TESTS RESULT OUT OF RANGE REFERENCE UNITS LAB L100.1000 4.4-11.0 K/mm3 Low WBC 3.8 LAB L100.1200 4.2-5.4 M/mm3 Normal RBC 4.75 LAB L100.1300 12.0-15.0 g/dl High HGB 15.2 LAB L100.1400 37-47 % Normal HCT 45.1 LAB L100.1500 81-99 fL Normal MCV 94.9 LAB L100.1600 27.0-32.0 pg Normal MCH 32.0 LAB L100.1700 32-36 g/gl Normal MCHC 33.7 LAB L100.1810 11.6-14.6 % Normal RDW CV 13.2 LAB L100.1820 35.1-43.9 fl High RDW SD 44.1 LAB L100.1900 150-450 K/mm3 Low PLT 113 LAB L100.2000 6.2-12.0 fl Normal MPV 10.0 Performed By: #### L100.0500 #### [facility] [address] [place], [place], [id number] RENAL PROFILE Collected: 02/24/2017 Status: F Source: ESTHER 10:00 AM [facility] REPOSITORY TYPE CODE TESTS RESULT OUT OF RANGE REFERENCE UNITS LAB L501.0100 70-110 mg/dL High GLU 137 Result Comment: Fasting Glucose result greater than or equal to 126 mg/dL suggests DIABETES MELLITUS per A.D.A. criteria. LAB L501.1000 7-18 mg/dL Normal BUN 17 LAB L501.1100 0.55-1.02 mg/dL Normal CREAT,SERUM 0.91 Result Comment: The validity of the calculated GFR AND GFRAA in patients over 70 years has not been determined. Clinical correlation is essential. LAB L501.1110 >60 mL/min Normal EST GFR 65 Result Comment: Non- GFR Calc LAB L501.1115 >60 mL/min Normal EST GFR - AA 79 Result Comment: GFR Calc LAB L501.1300 10-20 RATIO Normal BUN/CRE 18.7 LAB L501.1800 3.4-5.0 g/dL Normal ALB 3.8 Result Comment: Please note revised Albumin AND Globulin reference range effective 2016. LAB L501.2200 8.5-10.1 mg/dL Normal CA 9.1 LAB L501.2300 2.5-4.9 mg/dL Normal PHOS 2.6 LAB L501.5300 136-145 mmol/L Normal NA 139 LAB L501.5600 3.5-5.1 mmol/L Normal K 4.3 LAB L501.5900 98-107 mmol/L Normal CL 105 LAB L501.6100 21.0-32.0 mmol/L Normal CO2 27.0 Performed By: #### L500.3600 #### [facility] [place], [address] Observed: 02/24/2017 Status: F Source: [place] CULTURE, URINE 10:00 AM [facility] REPOSITORY Urine Culture ORGANISM 1: Streptococcus mitis/ oralis [place] Count 25,000-50,000 Streptococcus mitis/ oralis: REACTION Ampicillin $ <=0.25 S Benzylpenicillin NF <=0.06 S Cefotaxime $ <=0.12 S Ceftriaxone (other dx) $ <=0.12 S Levofloxacin $ >=16 R Tetracycline NF 0.5 S Vancomycin $ 0.5 S (NF) indicates non-formulary drug at [facility]. Approval by Infectious Disease Specialist required before non-formulary drugs may be ordered and/or dispensed. * CLSI guidelines does not recommend testing of cephalosporins. This interpretation is deduced from Beta-lactam/penicillin results. Performed By: #### M100.0650 #### [facility] [address] [place], [address] TACROLIMUS Collected: 02/24/2017 Status: F Source: O[place] 10:00 [facility] [address] REPOSITORY TYPE CODE TESTS RESULT OUT OF REFERENCE UNITS RANGE LAB FK506(LOIN 2.0 - 15.0 ng/mL C) TACROLIMUS 6.7 Result Comment: NOTE: Result was obtained using a chemiluminescent microparticle immunoassay (CMIA) on the [employer] Installer i system. Optimal therapeutic ranges for immuno- suppressant drugs depend upon an individual patient's current clinical state, type of organ transplant, time post-transplant, co-administration of other immunosuppressants, and other clinical factors. The results of this test should be correlated with additional clinical and laboratory data before changes in treatment regimens are made. Performed By: #### FK506 #### [facility] [address] [place], [place] [id number] TACROLIMUS Collected: 02/05/2017 Status: F Source: O[place] 9:22 AM [facility] REPOSITORY TYPE CODE TESTS RESULT OUT OF REFERENCE UNITS RANGE LAB FK506(LOIN 2.0 - 15.0 ng/mL C) TACROLIMUS 6.0 Result Comment: NOTE: Result was obtained using a chemiluminescent microparticle immunoassay (CMIA) on the Culvert Installer i system. Optimal therapeutic ranges for immuno- suppressant drugs depend upon an individual patient's current clinical state, type of organ transplant, time post-transplant, co-administration of other immunosuppressants, and other clinical factors. The results of this test should be correlated with additional clinical and laboratory data before changes in treatment regimens are made. Performed By: #### FK506 #### [facility] [address] [place], [place] [id number] ALLERGIES ALLERGIES DATE TYPE / CODE NAME / CODE REACTION SEVERITY SOURCE 01/03/2013 Drug amoxicillin Hives Unknown [place] Allergy/416 trihydrate/[id number] [facility] 383961(SNOM 707(RXNORM) [facility]) Repository 01/03/2013 Drug potassium Hives Unknown [place] Allergy/416 clavulanate/V46772 Community 055144(SNOM 2809(RXNORM) [facility] ED CT) Repository 01/21/2005 DRUG/454161 AMOXICILLIN-POT [facility] 003(SNOMED CLAVULANATE [facility]) Repository ENCOUNTERS ENCOUNTERS ADMIT/DISCHARGE ACCOUNT ADMITTING ENCOUNTER LOCATION SOURCE NUMBER CLASS 01/19/2018 [id number] [facility] ing:LAB Repository 01/14/2018/01/20/20 [id number] Ambulatory [address] ing:LAB Repository 10/07/2017/10/08/19 [id number] Ambulatory [address] ing:LAB Repository 05/27/2017 [id number] Ambulatory [facility] Repository 05/20/2017 [id number] [facility] [place] Repository 05/12/2017/05/13/19 [id number] Ambulatory [address] ing:LAB Repository 04/10/2017 [id number] [facility] ing:LAB Repository 04/04/2017/04/04/19 [id number] Ambulatory [address] ing:LAB Repository 03/14/2017/03/14/[id number] Repository 02/24/2017/02/24/[id number] ing:LAB Repository PAYERS PAYERS ENCOUNTER GUARANTOR PAYER SUBSCRIBER SOURCE 01/19/2018 [address] [place] [id number] Insurance:MEDICARE ESTRADADOB: [facility] PART A [facility] [id number] Number: Repository [id number]: (001) [id number] [phone] () Date:2017-03-21 01/19/2018 Secondary Viet E [place] Insurance:EVERENCE EstradaDOB: [facility] [id number] Hospital Number: Repository [id number] Date:8855-91-68[place] [address]UK: 01/19/2018 Tertiary NOT GIVENUNK [place] Insurance:SELF PAY [facility] Number: Effective Repository Date:2018-01-19 01/14/2018 [address] [place] [id number] Insurance:MEDICARE ESTRADADOB: Community [address] PART A [facility] [id number] Number: Repository [id number]: 330 [id number] [phone] () Date:2017-03-21 01/14/2018 Secondary Viet E [place] Insurance:EVERENCE EstradaDOB: [facility] [id number] Hospital Number: Repository [id number] Date:5694-44-77[address] [place] [address]EJ: 01/14/2018 Tertiary NOT GIVENUNK [place] Insurance:SELF PAY [facility] Number: Effective Repository Date:2017-10-21 10/07/2017 [address] [place] [id number] Insurance:MEDICARE ESTRADADOB: [facility] [address] PART A [facility] [id number] Number: Repository [id number]: 330 [id number] [phone] () Date:2017-03-21 10/07/2017 Secondary Viet E [place] Insurance:EVERENCE EstradaDOB: [facility] [id number] Hospital Number: Repository [id number] Date:[id number] [place] [address]MP: 10/07/2017 Tertiary NOT GIVENUNK [place] Insurance:SELF PAY [facility] Hospital Number: Effective Repository Date:2017-05-19 05/27/2017 [address] [facility] ESTRADADOB: Insurance:MedicarePol ESTRADADOB: [facility] [id number] icy Number: [id number] [facility] [id number] [address] [place] [address] Date:5700-10-00ApfwBelmont Behavioral HospitalEK, [id number]: Name:Rebekah Mcmillan [place] [id number]: (HP) (HP) 05/27/2017 [facility] Insurance:MedicarePol ESTRADADOB: Hospitals icy Number: [id number] Repository [id number] [address] Date:1395-74-52Blhy [address] [place], Name:Rebekah Cuadra [place] [id number]: (HP) 05/27/2017 [facility] Insurance:CommercialP ESTRADADOB: Hospitals olicy Number: [id number] Repository [id number] [address] Date:Plan [place], Name:HealthPO BOX [place] [id number]: [address] [place] [address] [place] [id number]: (271) (HP) [phone] 05/20/2017 [facility] ESTRADADOB: Insurance:MedicarePol ESTRADADOB: [facility] [id number] icy Number: [id number] Repository [address] [id number] 84 [facility], [place] Date:7904-13-34Txwc RDFORT [facility] [place] [place], [id number]: Name:Rebekah Mcmillan [place] [phone]: (HP) (HP) 05/20/2017 [facility] Insurance:MedicarePol ESTRADADOB: Hospitals icy Number: [id number] Repository [id number] [address] Date:4960-59-72Csya [address] [place], Name:Rebekah Cuadra [place] [id number]: (HP) 05/20/2017 [facility] Insurance:CommercialP ESTRADADOB: Hospitals olicy Number: [id number] Repository [id number] [address] Date:Plan [address] [place], Name:HealthPO BOX [place] [id number]: APRYL [place] [id number]: ([phone]) (ID) [phone] 05/12/2017 [address] [place] [id number] Insurance:MEDICARE ESTRADADOB: Community [address] PART A [facility] [id number] [place] Number: Repository [id number]: 330 [id number] [phone] () Date:2017-05-12 05/12/2017 Secondary Viet E [place] Insurance:EVERENCE EstradaDOB: [facility] [id number] Hospital Number: Repository [id number] Date:5031-40-76YK [address] [place] [place] [address]SC: 05/12/2017 Tertiary NOT GIVENUNK [place] Insurance:SELF PAY [facility] Number: Effective Repository Date:2017-05-12 04/10/2017 [address] [place] [id number] Insurance:MEDICARE ESTRADADOB: [facility] PART A [facility] [id number] [facility] Number: Repository [id number]: 330 [id number] [phone] () Date:2017-04-10 04/10/2017 Secondary Viet E [place] Insurance:EVERENCE EstradaDOB: [facility] [id number] Hospital Number: Repository [id number] Date:4540-32-59YT BOX [facility] [place] [address]JM: 04/10/2017 Tertiary NOT GIVENUNK [place] Insurance:SELF PAY [facility] Number: Effective Repository Date:2017-04-10 04/04/2017 [address] [place] [id number] Insurance:MEDICARE ESTRADADOB: [facility] [address] PART A [facility] [id number] [facility] Number: Repository [id number]: 330 [id number] [phone] () Date:2017-03-21 04/04/2017 Secondary Viet E [place] Insurance:EVERENCE EstradaDOB: [facility] [id number] Hospital Number: Repository [id number] Date:8149-59-32[address] [address]WH: 04/04/2017 Tertiary NOT GIVENUNK [place] Insurance:SELF PAY [facility] Number: Effective Repository Date:2017-03-21 02/24/2017 [address] [place] [id number] Insurance:MEDICARE ESTRADADOB[facility] [id number] Number: Repository [id number]: [phone] [id number] [phone] () Date:2005-05-18 02/24/2017 Secondary Viet E [place] Insurance:EVERENCE EstradaDOB: [facility] [id number] Hospital Number: Repository [id number] Date:3028-93-35WU [address] [place] [address]AD: 02/24/2017 Tertiary NOT GIVENUNK [place] Insurance:SELF PAY [facility] Hospital Number: Effective Repository Date:2017-02-17
== END 2018-01-19 10:49 | disposition home or self-care (01) ==
LOC: LAB 08:59
PROVIDERS: Family Provider Family Medicine; PCP Family Medicine
DX: Z94.0 Kidney transplant status (principal); D89.9 Disorder involving the immune mechanism, unspecified; N39.0 Urinary tract infection, site not specified
CPT/HCPCS: 36415; 80069; 80197; 81002; 85027; 87086; 87088

== ENCOUNTER 2018-02-04 07:59 | Outpatient (RCR) | payer MEDICARE, OTHER, SELFPAY ==
[2018-02-06 13:12] LABS: Tacrolimus (FK506) 3.4 ng/mL (2.0-20.0)
--- OUTSIDE RECORDS SUMMARY | 2018-05-08 08:19 | XMS RPT_ITS ---
:1950 Author Organization [place] Support Name Relationship Address Phone VIVIANE PORTERONY Unavailable [address] + [place] [address] GASTON, MANOJ Unavailable [address] + [place] [address] R Unavailable Unavailable Unavailable PORTER, JOSE Unavailable [address] + [place] [address] GASTON, MANOJ Unavailable [address] + [place] [address] R Unavailable Unavailable Unavailable PORTER, JOSE Unavailable [address] + [place] [address] GASTON, MANOJ Unavailable [address] + [place] [address] R Unavailable Unavailable Unavailable PORTER, JOSE Unavailable [address] + [place] [address] GASTON, MANOJ Unavailable [address] + [place] [address] R Unavailable Unavailable Unavailable PORTER, JOSE Unavailable Unavailable + PORTER, JOSE Unavailable Unavailable + PORTER, JOSE Unavailable Unavailable + PORTER, JOSE Unavailable Unavailable + PORTER, JOSE Unavailable [address] + [place] [address] GASTON, MANOJ Unavailable [address] + [place] [address] R Unavailable Unavailable Unavailable PORTER, JOSE Unavailable [address] + [place] [address] GASTON, MANOJ Unavailable [address] + [place] [address] R Unavailable Unavailable Unavailable JOSE PORTER Unavailable [address] + [place] [address] MANOJ FELDMAN Unavailable [address] + [place] [address] R Unavailable Unavailable Unavailable Care Team Providers Name Role Phone MARIANA ZARATE Attending Unavailable Cebul III, Irineo [...] TYPE CONDITION / CODE ATTENDING STATUS SOURCE 02/16/2018 Unknown 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 Barbie Active [place] diagnosis infection, site [facility] not specified / Repository N39.0(ICD-10) 05/27/2017 Final diagnosis Urinary tract [facility] (discharge) infection, site [facility] not specified / Repository N39.0(ICD-10) 05/20/2017 Final diagnosis Kidney transplant [facility] ([facility] status / [facility] Z94.0(ICD-10) Repository 05/20/2017 Final diagnosis Decreased white Dr. Bar[facility] (discharge) blood cell count, [facility] unspecified / Repository D72.819(ICD-10) PROCEDURES PROCEDURES No Procedure Records FoundRESULTS RESULTS TACROLIMUS (PROGRAF) Collected: 02/04/2018 Status: F Source: [place] 8:02 AM [facility] REPOSITORY TYPE CODE TESTS RESULT OUT OF RANGE REFERENCE UNITS LAB L3380.1100 2.0-20.0 ng/mL Normal TACROLIMUS 3.4 Result Comment: Trough (immediately following transplant) 15.0 Trough (steady state, 2 weeks or more after transplant): 3.0 - 8.0 Detection Limit = 1.0 Performed by LC-MS/MS technology. Performed at: [facility] [address] [id number] Legal Instruments Examiner: Nelsy Iraheta MD, Phone: [phone] Performed By: #### L3380.1000 #### [facility] (refer to report for specific site) refer to report for address and phone number URINALYSIS, ROUTINE Collected: 01/14/2018 Status: F Source: [place] (DIPSTICK) 9:07 AM [facility] REPOSITORY Order Comment: How was Urine Obtained? [...] ESTERASE 500 Performed By: #### L400.2010 #### [facility] [address] [place], [place], [address] CBC-COMPLETE BLOOD CNT Collected: 01/14/2018 Status: F Source: [place] NO DIFF 9:07 AM [facility] REPOSITORY TYPE CODE TESTS RESULT OUT OF [...] MPV 9.7 Performed By: #### L100.0500 #### [facility] [address] [facility] [address]. [place], [place], [address] RENAL PROFILE Collected: 01/14/2018 Status: F Source: [place] 9:07 AM [facility] REPOSITORY TYPE CODE TESTS RESULT OUT OF [...] CO2 29.0 Performed By: #### L500.3600 #### [facility] [address] [place], [place], [address] Observed: 01/14/2018 Status: F Source: [place] CULTURE, URINE 9:07 [facility] REPOSITORY Urine Culture ORGANISM 1: Mixed Gram Positive Organisms [place] Count 1000-10,000 MIX CULTURE Mixed contaminants. Submit a new specimen if indicated. Performed By: #### M100.0650 #### [facility] [address] [place], [address] TACROLIMUS (PROGRAF) Collected: 01/14/2018 Status: F Source: [place] 9:07 AM [facility] REPOSITORY TYPE CODE TESTS RESULT OUT OF RANGE REFERENCE UNITS LAB L3380.1100 2.0-20.0 ng/mL Normal TACROLIMUS 3.9 Result Comment: Trough (immediately following transplant) 15.0 Trough (steady state, 2 weeks or more after transplant): 3.0 - 8.0 Detection Limit = 1.0 Performed by LC-MS/MS technology. Performed at: - [address] [id number] [employer] Examiner: Nelsy Iraheta MD, Phone: [phone] Performed By: #### L3380.1000 #### [facility] (refer to report for specific site) refer to report for address and phone number TACROLIMUS Collected: 10/10/2017 Status: F Source: [place] 12:00 AM [facility] REPOSITORY TYPE CODE TESTS RESULT OUT OF REFERENCE UNITS RANGE LAB FK506(LOIN 2.0 - 15.0 ng/mL C) TACROLIMUS 5.5 Result Comment: NOTE: Result was obtained using a chemiluminescent microparticle immunoassay (CMIA) on the Usability Engineer i system. Optimal therapeutic ranges for immuno- suppressant drugs depend upon an individual patient's current clinical state, type of organ transplant, time post-transplant, co-administration of other immunosuppressants, and other clinical factors. The results of this test should be correlated with additional clinical and laboratory data before changes in treatment regimens are made. Performed By: #### FK506 #### [facility] [address] [place], [place] [id number] CBC-COMPLETE BLOOD CNT Collected: 10/07/2017 Status: F Source: [place] NO DIFF 8:40 AM [facility] REPOSITORY TYPE CODE TESTS RESULT OUT OF [...] MPV 9.9 Performed By: #### L100.0500 #### [facility] [address] [place], [address] URINALYSIS, ROUTINE Collected: 10/07/2017 Status: F Source: [place] (DIPSTICK) 8:40 AM [facility] REPOSITORY Order Comment: How was Urine Obtained? [...] ESTERASE 500 Performed By: #### L400.2011 #### [facility] [address] [place], [place], [address] RENAL PROFILE Collected: 10/07/2017 Status: F Source: [place] 8:40 AM [facility] REPOSITORY TYPE CODE TESTS RESULT OUT OF [...] CO2 29.0 Performed By: #### L500.3600 #### [facility] [address] [place], [address] Observed: 10/07/2017 Status: F Source: [place] CULTURE, URINE 8:40 AM [facility] REPOSITORY Urine Culture ORGANISM 1: Streptococcus mitis/ oralis [place] Count >100,000 Streptococcus mitis/ oralis: REACTION Ampicillin $ <=0.25 S Benzylpenicillin NF 0.12 S Cefotaxime $ 0.5 S Ceftriaxone $ <=0.12 S Vancomycin $ 0.5 S (NF) indicates non-formulary drug at [facility]. Approval by Infectious Disease Specialist required before non-formulary drugs may be ordered and/or dispensed. * CLSI guidelines does not recommend testing of cephalosporins. This interpretation is deduced from Beta-lactam/penicillin results. Performed By: #### M100.0650 #### [facility] [address] [place], [address] US TRANSP KIDNEY Observed: 05/27/2017 Status: F Source: [place] 4:11 PM [facility] REPOSITORY Patient Name: VIET PORTER STUDY: US TRANSP KIDNEY; US RENAL BILAT; 05/27/2017 4:11 pm INDICATION: Recurrent UTI; history of remote renal transplant. COMPARISON: Transplant renal ultrasound 06/01/2005; CT abdomen pelvis 06/06/2005 ACCESSION NUMBER(S): [id number]; [id number] ORDERING CLINICIAN: AMY SEGURA TECHNIQUE: Multiplanar grayscale and color/spectral doppler ultrasound images through the right iliac fossa were obtained at [facility] and submitted for interpretation on 05/27/2017 at [facility]. FINDINGS: There are numerous cystic lesions within [...] as above. 3. Poor visualization of bilateral chinik kidneys, as above. Partially visualized multi-cystic liver. I personally reviewed the image(s)/study and resident interpretation. I agree with the findings as stated. Data analyzed and images interpreted at [place], [place]. Electronically signed by: SANJANA PARKS MD, PHD US RENAL BILAT Observed: 05/27/2017 Status: F Source: [place] 4:11 PM [facility] REPOSITORY Patient Name: VIET PORTER STUDY: US TRANSP KIDNEY; US RENAL BILAT; 05/27/2017 4:11 pm INDICATION: Recurrent UTI; history of remote renal transplant. COMPARISON: Transplant renal ultrasound 06/01/2005; CT abdomen pelvis 06/06/2005 ACCESSION NUMBER(S): [id number]; [id number] ORDERING CLINICIAN: AMY SEGURA TECHNIQUE: Multiplanar grayscale and color/spectral doppler ultrasound images through the right iliac fossa were obtained at [facility] and submitted for interpretation on 05/27/2017 at [facility]. FINDINGS: There are numerous cystic lesions within [...] as above. 3. Poor visualization of bilateral chinik kidneys, as above. Partially visualized multi-cystic liver. I personally reviewed the image(s)/study and resident interpretation. I agree with the findings as stated. Data analyzed and images interpreted at [facility], [place], [place]. Electronically signed by: SANJANA PARKS MD, PHD URINALYSIS Collected: 05/20/2017 Status: F Source: [place] 9:50 AM [facility] REPOSITORY TYPE CODE TESTS [...] LARGE (3+) Performed By: #### UA #### [facility] [address] [place] [address] UA MICROSCOPIC Collected: 05/20/2017 Status: F Source: [place] 9:50 AM [facility] REPOSITORY TYPE CODE TESTS RESULT OUT OF RANGE REFERENCE UNITS LAB WBCUR(LOIN 0-5 /HPF C) Abnormal WBC 62 LAB WBCLU(LOIN /HPF C) WBC OCC [place] LAB RBCUR(LOIN 0-5 /HPF C) RBC 2 Performed By: #### UAMIC #### [facility] [address] [place] [address] URINE Observed: 05/20/2017 Status: F Source: [place] CULTURE,BACTERIAL 9:50 [facility] REPOSITORY PATIENT: VIET PORTER LOCATION: [facility] BILL#: [id number] : 46 AGE: SEX: F ORDERED BY: AMY SEGURA SOURCE: URINE COLLECTED: 05/20/17 09:50 ANTIBIOTICS AT [facility].: RECEIVED : 05/20/17 18:14 SITE: Clean Catch/Voided R E S U L T S URINE CULTURE,BACTERIAL FINAL 05/22/17 15:09 ISOLATE1 : Streptococcus viridans Group >100,000 CFU/ML Performed By: #### URINC #### [facility] [address] [place] [address] CBC AND DIFFERENTIAL Collected: 05/20/2017 Status: F Source: [place] 9:12 AM [facility] REPOSITORY TYPE CODE TESTS [...] BASOPHIL 0.02 Performed By: #### CBCDF #### [facility] [address] [place] [address] RENAL FUNCTION PANEL Collected: 05/20/2017 Status: F Source: [place] 9:12 AM [facility] REPOSITORY TYPE CODE TESTS [...] ALBUMIN 4.0 Performed By: #### RENAL #### [facility] [address] [place] [address] TACROLIMUS Collected: 05/20/2017 Status: F Source: [place] 9:12 AM [facility] REPOSITORY TYPE CODE TESTS RESULT OUT OF REFERENCE UNITS RANGE LAB FK506(LOIN 2.0 - 15.0 ng/mL C) TACROLIMUS 7.3 Result Comment: NOTE: Result was obtained using a chemiluminescent microparticle immunoassay (CMIA) on the Usability Engineer i system. Optimal therapeutic ranges for immuno- suppressant drugs depend upon an individual patient's current clinical state, type of organ transplant, time post-transplant, co-administration of other immunosuppressants, and other clinical factors. The results of this test should be correlated with additional clinical and laboratory data before changes in treatment regimens are made. Performed By: #### FK506 #### [facility] [address] [place], [place] [id number] RENAL FUNCTION PANEL Collected: 05/16/2017 Status: CANCELLED Source: [place] 12:00 AM [facility] REPOSITORY Order Comment: TEST RENAL FUNCTION PANEL [...] Canceled ALBUMIN Performed By: #### RENAL #### [facility] [address] [facility] [place] [address] CBC Collected: 05/16/2017 Status: F Source: [place] 12:00 [facility]ALS REPOSITORY TYPE CODE TESTS RESULT OUT [...] RDW-CV 14.0 Performed By: #### CBC #### [facility] [address] [facility] [place] [address] TACROLIMUS Collected: 05/16/2017 Status: F Source: [place] 12:00 AM [facility] REPOSITORY TYPE CODE TESTS RESULT OUT OF REFERENCE UNITS RANGE LAB FK506(LOIN 2.0 - 15.0 ng/mL C) High TACROLIMUS 19.5 Result Comment: NOTE: Result was obtained using a chemiluminescent microparticle immunoassay (CMIA) on the Usability Engineer i system. Optimal therapeutic ranges for immuno- suppressant drugs depend upon an individual patient's current clinical state, type of organ transplant, time post-transplant, co-administration of other immunosuppressants, and other clinical factors. The results of this test should be correlated with additional clinical and laboratory data before changes in treatment regimens are made. Performed By: #### FK506 #### [place] [address] [place], [place] [id number] CBC-COMPLETE BLOOD CNT Collected: 05/12/2017 Status: F Source: [place] NO DIFF 7:16 AM [facility] REPOSITORY TYPE CODE TESTS RESULT OUT OF [...] MPV 9.5 Performed By: #### L100.0500 #### [facility] [address] [place], [place], [address] URINALYSIS, COMPLETE Collected: 05/12/2017 Status: F Source: [place] 7:16 AM [facility] REPOSITORY Order Comment: URINE COLLECTED @ HOME [...] URINE SEEN Performed By: #### L400.0001 #### [facility] [address] [place], [address] RENAL PROFILE Collected: 05/12/2017 Status: F Source: [place] 7:16 AM [facility] REPOSITORY TYPE CODE TESTS RESULT OUT OF [...] CO2 27.0 Performed By: #### L500.3600 #### [facility] [address] [facility] [place], [place], [address] Observed: 05/12/2017 Status: F Source: [place] CULTURE, URINE 7:16 AM [facility] REPOSITORY URINE COLLECTED @ HOME AROUND 0600. Urine Culture ORGANISM 1: Streptococcus mitis/ oralis [place] Count >100,000 Streptococcus mitis/ oralis: REACTION Ampicillin $ <=0.25 S Benzylpenicillin NF <=0.06 S Cefotaxime $ <=0.12 S Ceftriaxone $ <=0.12 S Levofloxacin $ >=16 R Tetracycline NF 0.5 S Vancomycin $ 0.5 S (NF) indicates non-formulary drug at [facility]. Approval by Infectious Disease Specialist required before non-formulary drugs may be ordered and/or dispensed. * CLSI guidelines does not recommend testing of cephalosporins. This interpretation is deduced from Beta-lactam/penicillin results. Performed By: #### M100.0650 #### [facility] [address] [place], [address] URINALYSIS, ROUTINE Collected: 04/10/2017 Status: F Source: [place] (DIPSTICK) 9:30 AM [facility] REPOSITORY Order Comment: URINE IS IN THE [...] ESTERASE 500 Performed By: #### L400.2010 #### [facility] [address] [facility] [place], [place], [address] Observed: 04/10/2017 Status: F Source: [place] CULTURE, URINE 9:30 AM [facility] REPOSITORY Urine Culture ORGANISM 1: Streptococcus mitis/ oralis [place] Count >100,000 Streptococcus mitis/ oralis: REACTION Ampicillin $ <=0.25 S Benzylpenicillin NF <=0.06 S Cefotaxime $ <=0.12 S Ceftriaxone $ <=0.12 S Levofloxacin $ >=16 R Tetracycline NF 0.5 S Vancomycin $ 0.5 S (NF) indicates non-formulary drug at [facility]. Approval by Infectious Disease Specialist required before non-formulary drugs may be ordered and/or dispensed. * CLSI guidelines does not recommend testing of cephalosporins. This interpretation is deduced from Beta-lactam/penicillin results. Performed By: #### M100.0650 #### [facility] [address] [place], [place], [address] URINALYSIS, ROUTINE Collected: 04/04/2017 Status: F Source: [place] (DIPSTICK) 8:33 AM [facility] REPOSITORY Order Comment: How was Urine Obtained? [...] ESTERASE 500 Performed By: #### L400.2010 #### [facility] [address] [place], [place], [address] CBC-COMPLETE BLOOD CNT Collected: 04/04/2017 Status: F Source: [place] NO DIFF 8:33 AM [facility] REPOSITORY TYPE CODE TESTS RESULT OUT OF [...] MPV 10.3 Performed By: #### L100.0500 #### [facility] [address] [place], [address] RENAL PROFILE Collected: 04/04/2017 Status: F Source: [place] 8:33 AM [facility] REPOSITORY TYPE CODE TESTS RESULT OUT OF [...] CO2 26.0 Performed By: #### L500.3600 #### [facility] [address] [place], [address] Observed: 04/04/2017 Status: F Source: [place] CULTURE, URINE 8:33 AM [facility] REPOSITORY Urine Culture ORGANISM 1: Streptococcus mitis/ oralis [place] Count >100,000 Streptococcus mitis/ oralis: REACTION Ampicillin $ <=0.25 S Benzylpenicillin NF <=0.06 S Cefotaxime $ <=0.12 S Ceftriaxone $ <=0.12 S Levofloxacin $ >=16 R Tetracycline NF 0.5 S Vancomycin $ 0.5 S (NF) indicates non-formulary drug at [facility]. Approval by Infectious Disease Specialist required before non-formulary drugs may be ordered and/or dispensed. * CLSI guidelines does not recommend testing of cephalosporins. This interpretation is deduced from Beta-lactam/penicillin results. Performed By: #### M100.0650 #### [facility] [address] [place], [address] TACROLIMUS (PROGRAF) Collected: 04/04/2017 Status: F Source: [place] 8:33 AM [facility] REPOSITORY TYPE CODE TESTS RESULT OUT OF RANGE REFERENCE UNITS LAB L3380.1100 2.0-20.0 ng/mL Normal TACROLIMUS 5.4 Result Comment: Trough (immediately following transplant) 15.0 Trough (steady state, 2 weeks or more after transplant): 3.0 - 8.0 Detection Limit = 1.0 Performed by LC-MS/MS technology. Performed at: [facility] [address] [id number] Legal Instruments Examiner: Arturo Luu MD, Phone: [phone] Performed By: #### L3380.1000 #### [facility] (refer to report for specific site) refer to report for address and phone number PROGRESS Observed: 03/14/2017 Status: COMPLETED Source: [place] 11:05 AM [facility] REPOSITORY HNO ID: [id number] Author: Alla Knott Service: (none) Author Type: Nurse Practitioner Type: Progress Notes Filed: 03/14/2017 11:08 AM Note Text: HPI Pt presents with 2 day hx dysuria. Denies fever, chills, abd/back/flank pain. Hx kidney transplant. States had f/u with wax pattern assembler last week and urine had a few WBC noted. Was encouraged to drink fluids. States all labs were WNL. Pt requests copy of today's visit faxed to wax pattern assembler. Review of Systems Constitutional: Negative for chills [...] Knott CNP Observed: 03/14/2017 Status: F Source: [place] URINE CULTURE 10:43 AM [facility] REPOSITORY Sp. Request/Comment: - Specimen received in preservative Culture Result - <10,000 CFU/ml Normal urogenital shai Performed By: #### URCUL #### [facility] [address] [place], [place] [address] CNOV Observed: 03/14/2017 Status: COMPLETED Source: [place] 10:00 AM [facility] REPOSITORY Office Visit (UCWSTR) VIET PORTER ([id number]) 1950 F Date Time Provider Department 03/14/17 10:00 AM ALLA KNOTT [facility] During your visit today, we recorded the [...] Hx kidney transplant. States had f/u with wax pattern assembler last week and urine had a few WBC noted. Was encouraged to drink fluids. States all labs were WNL. Pt requests copy of today's visit faxed to wax pattern assembler. Review of Systems Constitutional: Negative for chills [...] in agreement with plan of care. Alla Knott, MEERA Referring Provider: SELF [200] Allergies As of Date: 03/14/2017 Noted Allergy Reaction AUGMENTIN (AMOXICILLIN-POT CLAVUL*01/21/2005 Date Reviewed: 03/14/2017 Reviewed by: Fior Dubon LPN - Fully Assessed Reason for Visit: Urinary Problem [252] Cmt: Burning with urination x 3 day Primary Visit Diagnosis:Acute cystitis with hematuria [N30.01] Other Visit Diagnosis:Burning with urination [R30.0] Order(s):URINE CULTURE [SQURCUL] Order #: [id number] UA DIP B/O [[id number]] Order #: [id number] ciprofloxacin HCl (CIPRO) 250 mg tabletTake 1 [...] Status:Closed by ALLA KNOTT CNP on 03/14/17 ALLERGIES ALLERGIES DATE TYPE / CODE NAME / CODE REACTION SEVERITY SOURCE 01/03/2013 Drug amoxicillin Hives Unknown [facility] Allergy/416 trihydrate/[id number] [facility] 146917([facility] 01/03/2013 Drug potassium Hives Unknown [facility] Allergy/416 clavulanate/I69950 [facility] 494136([facility] Repository 01/21/2005 DRUG/941926 AMOXICILLIN-POT [facility] 003(SNOMED CLAVULANATE [address] [place] [address]) Repository ENCOUNTERS ENCOUNTERS ADMIT/DISCHARGE ACCOUNT ADMITTING ENCOUNTER LOCATION SOURCE NUMBER CLASS 02/17/2018 [id number] [facility] ing:LAB Repository 02/04/2018/02/05/[id number] ing:LAB Repository 01/14/2018/01/20/[id number] ing:LAB Repository 10/07/2017/10/08/[id number] ing:LAB Repository 05/27/2017 [id number] Ambulatory [facility] Repository 05/20/2017 [id number] [facility] 05/12/2017/05/13/[id number] ing:LAB Repository 04/10/2017 [id number] [facility] ing:LAB Repository 04/04/2017/04/04/[id number] ing:LAB Repository 03/14/2017/03/14/19 [id number] Ambulatory [address] Repository PAYERS PAYERS ENCOUNTER GUARANTOR PAYER SUBSCRIBER SOURCE 02/17/2018 VIET E Primary [address]ET E [facility] [id number] Insurance:MEDICARE ESTRADADOB: [facility] ADDISON RDAPPLE PART A [facility] [id number] Number: Repository [id number]: [phone] [id number] [phone] () Date:2017-03-21 02/17/2018 Secondary Viet E [place] Insurance:EVERENCE EstradaDOB: [facility] [id number] Hospital Number: Repository [id number] Date:[id number] [id number]: 02/17/2018 Tertiary NOT GIVENUNK [place] Insurance:SELF PAY [facility] Number: Effective Repository Date:2018-02-16 02/04/2018 VIET E Primary VIET E Esther [id number] Insurance:MEDICARE [facility]STRADADOB[facility] [id number] Number: Repository [id number]: 330 [id number] [phone] () Date:2017-03-21 02/04/2018 Secondary Viet E [facility] Insurance:EVERENCE EstradaDOB: [facility] [id number] Hospital Number: Repository [id number] Date:7232-20-93LK[address] [address]XI: 02/04/2018 Tertiary NOT GIVENUNK [facility] Insurance:SELF PAY [facility] Number: Effective Repository Date:2018-01-19 01/14/2018 VIET E Primary VI[address] E Esther [id number] Insurance:MEDICARE ESTRADADOB[facility] [id number] Number: Repository [id number]: 330 [id number] () Date:2017-03-21 01/14/2018 Secondary Viet E Esther Insurance:EVERENCE EstradaDOB: [facility] [id number] Hospital Number: Repository [id number] Date:5001-08-41SV[address] [address]LR: 01/14/2018 Tertiary NOT GIVENUNK Esther Insurance:SELF PAY [facility] Number: Effective Repository Date:2017-10-21 10/07/2017 VIET E Primary VIET E Goodspring [id number] Insurance:MEDICARE ESTRADADOB: [facility] PART A [facility] [id number] Number: Repository [id number]: [phone] [id number] [phone] () Date:2017-03-21 10/07/2017 Secondary Viet E Esther Insurance:EVERENCE EstradaDOB: [facility] [id number] Hospital Number: Repository [id number] Date:9990-56-37LI[address] [address]XJ: 10/07/2017 Tertiary NOT GIVENUNK Esther Insurance:SELF PAY [facility] Number: Effective Repository Date:2017-05-19 05/27/2017 VIET E Primary VIET E University ESTRADADOB: Insurance:MedicarePol ESTRADADOB: [facility] [id number] icy Number: [id number] Repository [facility] [id number] [address] [place], [place] Date:4618-48-75Iwut [facility], [id number]: Name:Rebekah Mcmillan [place] [id number]: (HP) (HP) 05/27/[address] VI[address] E University Insurance:MedicarePol ESTRADADOB: [facility] icy Number: [id number] Repository [id number] [address] [place] Date:0362-12-92Vbuo [facility], Name:Rose Maryjonathan Cuadra [place] [id number]: (HP) 05/27/[address] VI[address] E University Insurance:CommercialP ESTRADADOB: [facility] olicy Number: [id number] Repository [id number] [address] Date:[facility], Name:[facility] [address] [place] [id number]: [place] [id number]: [phone]) (HP) [phone] 05/20/2017 VIET E Primary [facility] University ESTRADADOB: Insurance:MedicarePol ESTRADADOB: [facility] [id number] icy Number: [id number] Repository [address] [id number] [address] [place], [place] Date:5668-36-19Dsjo [facility], [id number]: Name:Rebekah Mcmillan [place] [id number]: (HP) (HP) 05/20/2017 Secondary [facility] Insurance:MedicarePol ESTRADADOB: [facility] icy Number: [id number] Repository [id number] [address] Date:8319-22-91Gdpe [facility], Name:Rebekah Cuadra [place] [id number]: (HP) 05/20/2017 [facility] Insurance:CommercialP ESTRADADOB: [facility] olicy Number: [id number] Repository [id number] [address] Date:[facility], Name:[facility] [address] [place] [id number]: [place] [id number]: [phone] (HP) [phone] 05/12/2017 VIET E Primary VIET E [facility] [id number] Insurance:MEDICARE ESTRADADOB[facility] [id number] [place] Number: Repository [id number]: [phone] [id number] [phone] (HP) Date:2017-05-12 05/12/2017 Secondary Viet E Goodspring Insurance:EVERENCE EstradaDOB: [facility] [id number] Hospital Number: Repository [id number] Date:6360-17-34OX [facility] [address] [place] [address]UC: 05/12/2017 Tertiary NOT GIVENUNK [place] Insurance:SELF PAY [facility] Hospital Number: Effective Repository Date:2017-05-12 04/10/2017 VIET E Primary VIET E Esther [id number] Insurance:MEDICARE ESTRADADOB: [facility] PART A [id number] [place] Number: Repository [id number]: [phone] [id number] [phone] () Date:2017-04-10 04/10/2017 Secondary Viet E Goodspring Insurance:EVERENCE EstradaDOB: [facility] [id number] Hospital Number: Repository [id number] Date:2212-96-89FP [facility] [address] [place] [address]FE: 04/10/2017 Tertiary NOT GIVENUNK [place] Insurance:SELF PAY [facility] Hospital Number: Effective Repository Date:2017-04-10 04/04/2017 VIET E Primary VIET E Goodspring [id number] Insurance:MEDICARE ESTRADADOB: [facility] PART A [facility] [id number] Number: Repository [id number]: 330 [id number] () Date:2017-03-21 04/04/2017 Secondary Viet E [facility]spring Insurance:EVERENCE EstradaDOB: [facility] [id number] Hospital Number: Repository [id number] Date:0368-21-02JG [address] [place] [place] [address]UE: 04/04/2017 Tertiary NOT GIVENUNK Esther Insurance:SELF PAY [facility] Number: Effective Repository Date:2017-03-21
== END 2018-02-04 08:00 | disposition home or self-care (01) ==
LOC: LAB 07:59
PROVIDERS: Family Provider Family Medicine; PCP Family Medicine
DX: D89.9 Disorder involving the immune mechanism, unspecified (principal); Z94.0 Kidney transplant status
CPT/HCPCS: 36415; 80197

== ENCOUNTER 2018-04-15 08:36 | Outpatient (RCR) | payer MEDICARE, OTHER, SELFPAY ==
[2018-04-15 09:37] LABS: Hematocrit 45.6 % (37-47); Hemoglobin 14.6 g/dl (12.0-15.0); Mean Corpuscular Volume 96.8 fL (81-99); Platelet Count 119 K/mm3 (150-450); RBC Distribution Width CV 12.8 % (11.6-14.6); RBC Distribution Width SD 45.3 fl (35.1-43.9); Red Blood Count 4.71 M/mm3 (4.2-5.4); White Blood Count 3.6 K/mm3 (4.4-11.0)
[2018-04-15 09:38] LABS: Scan Indicated on CBC? Y/N NO
[2018-04-15 10:12] LABS: Albumin, Serum 3.4 g/dL (3.2-5.0); BUN 17 mg/dL (7-18); BUN/Creat Ratio 19.1 RATIO (10-20); Calcium,Total 8.5 mg/dL (8.5-10.1); Chloride 103 mmol/L (98-107); Creatinine, Serum 0.89 mg/dL (0.55-1.02); EST Glomerular Filtration Rate 67 mL/min (>60); Est Glom Filt Rate - Afr Amer 81 mL/min (>60); Glucose 114 mg/dL (74-106); Phosphorus 2.7 mg/dL (2.5-4.9); Potassium 3.9 mmol/L (3.5-5.1); Sodium Level 136 mmol/L (136-145)
[2018-04-18 12:22] LABS: Tacrolimus (FK506) 4.3 ng/mL (2.0-20.0)
== END 2018-04-16 14:28 | disposition home or self-care (01) ==
LOC: LAB 08:36
PROVIDERS: Family Provider Family Medicine; PCP Family Medicine
DX: D89.9 Disorder involving the immune mechanism, unspecified (principal); Z94.0 Kidney transplant status
CPT/HCPCS: 36415; 80069; 80197; 85027

== ENCOUNTER → 2018-04-25 08:44 | Outpatient (CLI) | payer MEDICARE, OTHER, SELFPAY ==
[2018-04-25 09:45] LABS: Hematocrit 43.6 % (37-47); Hemoglobin 14.3 g/dl (12.0-15.0); Mean Corp Hgb Conc 32.8 g/gl (32-36); Mean Corpuscular Hgb 31.7 pg (27.0-32.0); Mean Corpuscular Volume 96.7 fL (81-99); Mean Platelet Vol. 9.6 fl (6.2-12.0); Platelet Count 114 K/mm3 (150-450); RBC Distribution Width CV 13.1 % (11.6-14.6); RBC Distribution Width SD 45.6 fl (35.1-43.9); Red Blood Count 4.51 M/mm3 (4.2-5.4)
[2018-04-25 09:55] LABS: Scan Indicated on CBC? Y/N NO
[2018-04-25 09:57] LABS: Albumin, Serum 3.6 g/dL (3.2-5.0); BUN 16 mg/dL (7-18); BUN/Creat Ratio 17.5 RATIO (10-20); Calcium,Total 8.6 mg/dL (8.5-10.1); Chloride 105 mmol/L (98-107); Creatinine, Serum 0.92 mg/dL (0.55-1.02); EST Glomerular Filtration Rate 65 mL/min (>60); Est Glom Filt Rate - Afr Amer 78 mL/min (>60); Glucose 128 mg/dL (74-106); Phosphorus 2.7 mg/dL (2.5-4.9); Potassium 4.3 mmol/L (3.5-5.1); Sodium Level 136 mmol/L (136-145)
[2018-04-28 13:30] LABS: Tacrolimus (FK506) 6.9 ng/mL (2.0-20.0)
== END ==
PROVIDERS: Family Provider Family Medicine; PCP Family Medicine
DX: D89.9 Disorder involving the immune mechanism, unspecified (principal); Z94.0 Kidney transplant status
CPT/HCPCS: 36415; 80069; 80197; 85027

== ENCOUNTER 2018-05-29 08:24 | Outpatient (RCR) | payer MEDICARE, OTHER, SELFPAY ==
[2018-05-29 09:33] LABS: Hemoglobin 14.6 g/dl (12.0-15.0); Mean Corpuscular Hgb 31.7 pg (27.0-32.0); Mean Corpuscular Volume 93.5 fL (81-99); Mean Platelet Vol. 9.7 fl (6.2-12.0); Platelet Count 111 K/mm3 (150-450); RBC Distribution Width CV 13.2 % (11.6-14.6); RBC Distribution Width SD 44.7 fl (35.1-43.9); White Blood Count 3.3 K/mm3 (4.4-11.0)
[2018-05-29 09:36] LABS: Scan Indicated on CBC? Y/N NO
[2018-05-29 09:38] LABS: Prograf-FK506 TO CCF/UNIV MAILED SPECIMEN
[2018-05-29 10:02] LABS: Albumin, Serum 3.6 g/dL (3.2-5.0); BUN 16 mg/dL (7-18); BUN/Creat Ratio 16.8 RATIO (10-20); Calcium,Total 8.9 mg/dL (8.5-10.1); Chloride 104 mmol/L (98-107); Creatinine, Serum 0.95 mg/dL (0.55-1.02); EST Glomerular Filtration Rate 62 mL/min (>60); Est Glom Filt Rate - Afr Amer 75 mL/min (>60); Glucose 109 mg/dL (74-106); Phosphorus 3.1 mg/dL (2.5-4.9); Potassium 4.3 mmol/L (3.5-5.1); Sodium Level 138 mmol/L (136-145)
[2018-05-29 10:27] LABS: Color, Urine Yellow (Yellow); Glucose, Dipstick Normal (Normal); Ketone-Dipstick Negative (Negative); Leukocyte Esterase-Dipstick 500 /ul (Negative); Nitrite-Dipstick Negative (Negative); Occult Blood-Urine 25 /ul (Negative); Protein-Dipstick Negative (Negative); Urine Bilirubin Dipstick Negative (Negative); Urine Clarity Sl. Cloudy (Clear); Urine Urobilinogen Normal (Normal); Urine pH 6.5 (5.0 - 8.0)
== END 2018-06-16 16:00 | disposition home or self-care (01) ==
LOC: LAB 08:24
PROVIDERS: Family Provider Family Medicine; PCP Family Medicine
DX: D89.9 Disorder involving the immune mechanism, unspecified (principal); Z94.0 Kidney transplant status; R39.9 Unspecified symptoms and signs involving the genitourinary system
CPT/HCPCS: 36415; 80069; 81002; 85027; 87086; 87088

== ENCOUNTER 2018-07-21 07:57 | Outpatient (RCR) | payer MEDICARE, OTHER, SELFPAY ==
[2018-07-21 09:09] LABS: Hematocrit 46.1 % (37-47); Mean Corp Hgb Conc 34.7 g/gl (32-36); Mean Corpuscular Hgb 32.4 pg (27.0-32.0); Mean Corpuscular Volume 93.3 fL (81-99); Mean Platelet Vol. 9.9 fl (6.2-12.0); Platelet Count 115 K/mm3 (150-450); RBC Distribution Width CV 13.1 % (11.6-14.6); RBC Distribution Width SD 44.9 fl (35.1-43.9); Red Blood Count 4.94 M/mm3 (4.2-5.4); White Blood Count 3.4 K/mm3 (4.4-11.0)
[2018-07-21 09:11] LABS: Scan Indicated on CBC? Y/N NO
[2018-07-21 09:28] LABS: Protein, Urine (Random) < 6.0 mg/dL (<11.9)
[2018-07-21 09:30] LABS: Prograf-FK506 TO CCF/UNIV MAILED SPECIMEN
[2018-07-21 09:31] LABS: BUN 18 mg/dL (7-18); BUN/Creat Ratio 18.5 RATIO (10-20); Calcium,Total 9.4 mg/dL (8.5-10.1); Chloride 101 mmol/L (98-107); Cholesterol 195 mg/dL (200); Creatinine, Serum 0.97 mg/dL (0.55-1.02); EST Glomerular Filtration Rate 60 mL/min (>60); Est Glom Filt Rate - Afr Amer 73 mL/min (>60); Glucose 104 mg/dL (74-106); High Density Lipoprotein 68 mg/dL; Phosphorus 2.7 mg/dL (2.5-4.9); Potassium 4.3 mmol/L (3.5-5.1); Sodium Level 138 mmol/L (136-145); Triglycerides 87 mg/dL; Very Low Density Lipoprotein 17 mg/dL (5-40)
[2018-07-21 09:34] LABS: Hemoglobin A1c 5.9 % (4.2-6.3)
[2018-07-21 09:48] LABS: PTHIN 106.1 pg/mL (18.4-80.1)
[2018-07-21 09:50] LABS: Vitamin D,25 Hydroxy 29.5 ng/mL (29.95-100.01)
== END 2018-07-21 08:00 | disposition home or self-care (01) ==
LOC: LAB 07:57
PROVIDERS: Family Provider Family Medicine; PCP Family Medicine
DX: Z94.0 Kidney transplant status (principal); R73.9 Hyperglycemia, unspecified; E78.5 Hyperlipidemia, unspecified; E55.9 Vitamin D deficiency, unspecified
CPT/HCPCS: 36415; 80061; 80069; 82306; 82570; 83036; 83970; 84156; 85027

== ENCOUNTER 2018-09-09 08:21 | Outpatient (RCR) | payer MEDICARE, OTHER, SELFPAY ==
[2018-09-09 10:01] LABS: Albumin, Serum 3.5 g/dL (3.2-5.0); BUN 19 mg/dL (7-18); BUN/Creat Ratio 20.1 RATIO (10-20); Calcium,Total 8.9 mg/dL (8.5-10.1); Chloride 102 mmol/L (98-107); Creatinine, Serum 0.94 mg/dL (0.55-1.02); EST Glomerular Filtration Rate 62 mL/min (>60); Est Glom Filt Rate - Afr Amer 75 mL/min (>60); Glucose 114 mg/dL (74-106); Phosphorus 3.1 mg/dL (2.5-4.9); Potassium 4.2 mmol/L (3.5-5.1); Sodium Level 134 mmol/L (136-145)
[2018-09-09 14:34] LABS: Hemoglobin 14.4 g/dL (12.0-15.0); Mean Corp Hgb Conc 33.5 g/dL (32-36); Mean Corpuscular Hgb 32.6 pg (27.0-32.0); Mean Corpuscular Volume 97.3 fL (81-99); Mean Platelet Vol. 10.2 fl (6.2-12.0); Platelet Count 137 K/mm3 (150-450); RBC Distribution Width CV 12.5 % (11.6-14.6); RBC Distribution Width SD 44.5 fl (35.1-43.9); Red Blood Count 4.42 M/mm3 (4.2-5.4)
[2018-09-13 17:06] LABS: Tacrolimus (FK506) 9.9 ng/mL (2.0-20.0)
== END 2018-09-16 06:30 | disposition home or self-care (01) ==
LOC: LAB 08:21
PROVIDERS: Family Provider Family Medicine; PCP Family Medicine
DX: Z94.0 Kidney transplant status (principal)
CPT/HCPCS: 36415; 80069; 80197; 85027

== ENCOUNTER 2018-10-08 08:25 | Outpatient (RCR) | payer MEDICARE, OTHER, SELFPAY ==
[2018-09-29 09:04] LABS: Hemoglobin 14.7 g/dL (12.0-15.0); Mean Corp Hgb Conc 34.2 g/dL (32-36); Mean Corpuscular Hgb 32.7 pg (27.0-32.0); Mean Corpuscular Volume 95.6 fL (81-99); Mean Platelet Vol. 9.3 fl (6.2-12.0); Platelet Count 105 K/mm3 (150-450); RBC Distribution Width CV 12.6 % (11.6-14.6); RBC Distribution Width SD 44.3 fl (35.1-43.9); White Blood Count 3.1 K/mm3 (4.4-11.0)
[2018-09-29 09:23] LABS: Albumin, Serum 3.7 g/dL (3.2-5.0); BUN 14 mg/dL (7-18); BUN/Creat Ratio 15.4 RATIO (10-20); Calcium,Total 8.9 mg/dL (8.5-10.1); Chloride 104 mmol/L (98-107); Creatinine, Serum 0.91 mg/dL (0.55-1.02); EST Glomerular Filtration Rate 65 mL/min (>60); Est Glom Filt Rate - Afr Amer 79 mL/min (>60); Glucose 110 mg/dL (74-106); Phosphorus 2.8 mg/dL (2.5-4.9); Sodium Level 137 mmol/L (136-145)
[2018-10-05 14:20] LABS: Prograf-FK506 TO CCF/UNIV MAILED SPECIMEN
[2018-10-12 13:21] LABS: Tacrolimus (FK506) 8.3 ng/mL (2.0-20.0)
== END 2018-10-08 10:00 | disposition home or self-care (01) ==
LOC: LAB 08:25
PROVIDERS: Family Provider Family Medicine; PCP Family Medicine
DX: Z94.0 Kidney transplant status (principal)
CPT/HCPCS: 36415; 80069; 80197; 85027

== ENCOUNTER 2018-11-02 07:41 | Outpatient (RCR) | payer MEDICARE, OTHER, SELFPAY ==
[2018-11-05 16:18] LABS: Tacrolimus (FK506) 4.9 ng/mL (2.0-20.0)
== END 2018-11-02 09:00 | disposition home or self-care (01) ==
LOC: LAB 07:41
PROVIDERS: Family Provider Family Medicine; PCP Family Medicine
DX: Z94.0 Kidney transplant status (principal); D89.9 Disorder involving the immune mechanism, unspecified
CPT/HCPCS: 36415; 80197

== ENCOUNTER 2019-03-01 08:14 | Outpatient (RCR) | payer MEDICARE, OTHER, SELFPAY ==
[2019-03-01 09:23] LABS: Hematocrit 42.4 % (37-47); Hemoglobin 14.6 g/dL (12.0-15.0); Mean Corp Hgb Conc 34.4 g/dL (32-36); Mean Corpuscular Hgb 32.4 pg (27.0-32.0); Mean Platelet Vol. 9.6 fl (6.2-12.0); Platelet Count 143 K/mm3 (150-450); RBC Distribution Width CV 11.9 % (11.6-14.6); RBC Distribution Width SD 40.7 fl (35.1-43.9); Red Blood Count 4.51 M/mm3 (4.2-5.4); White Blood Count 3.7 K/mm3 (4.4-11.0)
[2019-03-01 09:30] LABS: Protein, Urine (Random) 10.2 mg/dL (<11.9); Protein:Creat Ratio 221 mg/g CRE (0-200)
[2019-03-01 09:41] LABS: Albumin, Serum 3.3 g/dL (3.2-5.0); BUN 13 mg/dL (7-18); BUN/Creat Ratio 15.6 RATIO (10-20); Calcium,Total 9.5 mg/dL (8.5-10.1); Chloride 101 mmol/L (98-107); Creatinine, Serum 0.83 mg/dL (0.55-1.02); EST Glomerular Filtration Rate 72 mL/min (>60); Est Glom Filt Rate - Afr Amer 87 mL/min (>60); Glucose 115 mg/dL (74-106); Phosphorus 3.4 mg/dL (2.5-4.9); Sodium Level 135 mmol/L (136-145)
== END 2019-03-01 18:00 | disposition home or self-care (01) ==
LOC: LAB 08:14
PROVIDERS: Family Provider Family Medicine; PCP Family Medicine
DX: Z94.0 Kidney transplant status (principal); D89.9 Disorder involving the immune mechanism, unspecified
CPT/HCPCS: 36415; 80069; 80197; 82570; 84156; 85027

== ENCOUNTER 2019-05-14 08:44 | Outpatient (RCR) | payer MEDICARE, OTHER, SELFPAY ==
[2019-04-27 09:34] LABS: Hematocrit 45.2 % (37-47); Hemoglobin 15.3 g/dL (12.0-15.0); Mean Corp Hgb Conc 33.8 g/dL (32-36); Mean Corpuscular Hgb 32.3 pg (27.0-32.0); Mean Corpuscular Volume 95.6 fL (81-99); Mean Platelet Vol. 10.1 fl (6.2-12.0); Platelet Count 102 K/mm3 (150-450); RBC Distribution Width CV 12.4 % (11.6-14.6); RBC Distribution Width SD 43.9 fl (35.1-43.9); Red Blood Count 4.73 M/mm3 (4.2-5.4); White Blood Count 4.3 K/mm3 (4.4-11.0)
[2019-04-27 09:50] LABS: Protein, Urine (Random) 19.2 mg/dL (<11.9); Protein:Creat Ratio 269 mg/g CRE (0-200)
[2019-04-27 10:04] LABS: Albumin, Serum 3.7 g/dL (3.2-5.0); BUN 16 mg/dL (7-18); BUN/Creat Ratio 15.8 RATIO (10-20); Chloride 103 mmol/L (98-107); Creatinine, Serum 1.01 mg/dL (0.55-1.02); EST Glomerular Filtration Rate 58 mL/min (>60); Est Glom Filt Rate - Afr Amer 70 mL/min (>60); Glucose 135 mg/dL (74-106); Phosphorus 2.1 mg/dL (2.5-4.9); Potassium 4.3 mmol/L (3.5-5.1); Sodium Level 135 mmol/L (136-145)
[2019-04-30 11:32] LABS: Tacrolimus (FK506) 5.2 ng/mL (2.0-20.0)
[2019-05-06 12:49] LABS: Mucous, Urine 0 SEEN /hpf (<or=2+); Squamous Epithelial Cells - UA 0 SEEN /hpf (5-10)
[2019-05-06 13:29] LABS: Color, Urine Yellow (Yellow); Glucose, Dipstick Normal (Normal); Ketone-Dipstick Negative (Negative); Leukocyte Esterase-Dipstick 500 /ul (Negative); Nitrite-Dipstick Negative (Negative); Occult Blood-Urine 150 /ul (Negative); Protein-Dipstick Negative (Negative); Urine Bilirubin Dipstick Negative (Negative); Urine Clarity Sl. Cloudy (Clear); Urine Urobilinogen Normal (Normal)
[2019-05-06 13:55] LABS: Red Blood Cells-Urine 0-5 SEEN /hpf (0-5); White Blood Cells 10-25 SEEN /hpf (0-5)
[2019-05-06 13:56] LABS: Bacteria RARE /hpf (None Seen)
[2019-05-14 09:17] LABS: Protein, Urine (Random) 9.1 mg/dL (<11.9); Protein:Creat Ratio 150 mg/g CRE (0-200)
[2019-05-14 14:09] LABS: Color, Urine Yellow (Yellow); Glucose, Dipstick Normal (Normal); Ketone-Dipstick Negative (Negative); Leukocyte Esterase-Dipstick 100 /ul (Negative); Nitrite-Dipstick Negative (Negative); Occult Blood-Urine Negative /ul (Negative); Protein-Dipstick Negative (Negative); Specific Gravity, Urine 1.015 (1.002-1.030); Urine Bilirubin Dipstick Negative (Negative); Urine Clarity Sl. Cloudy (Clear); Urine Urobilinogen Normal (Normal); Urine pH 6.5 (5.0 - 8.0)
== END 2019-05-14 18:00 | disposition home or self-care (01) ==
LOC: LAB 08:44
PROVIDERS: Family Provider Family Medicine; PCP Family Medicine
DX: Z94.0 Kidney transplant status (principal); Z13.89 Encounter for screening for other disorder; R30.0 Dysuria
CPT/HCPCS: 36415; 80069; 80197; 81001; 81002; 82570; 84156; 85027; 87086; 87088

== ENCOUNTER 2019-06-16 08:28 | Outpatient (RCR) | payer MEDICARE, OTHER, SELFPAY ==
[2019-06-16 09:00] LABS: Hematocrit 42.4 % (37-47); Hemoglobin 14.4 g/dL (12.0-15.0); Mean Corpuscular Hgb 31.9 pg (27.0-32.0); Mean Platelet Vol. 9.4 fl (6.2-12.0); Platelet Count 120 K/mm3 (150-450); RBC Distribution Width CV 12.4 % (11.6-14.6); RBC Distribution Width SD 42.9 fl (35.1-43.9); Red Blood Count 4.51 M/mm3 (4.2-5.4); White Blood Count 3.9 K/mm3 (4.4-11.0)
[2019-06-16 09:07] LABS: Protein, Urine (Random) 22.2 mg/dL (<11.9); Protein:Creat Ratio 571 mg/g CRE (0-200)
[2019-06-16 09:09] LABS: Albumin, Serum 3.6 g/dL (3.2-5.0); BUN 15 mg/dL (7-18); BUN/Creat Ratio 15.9 RATIO (10-20); Calcium,Total 9.3 mg/dL (8.5-10.1); Chloride 103 mmol/L (98-107); Creatinine, Serum 0.94 mg/dL (0.55-1.02); EST Glomerular Filtration Rate 62 mL/min (>60); Est Glom Filt Rate - Afr Amer 75 mL/min (>60); Glucose 129 mg/dL (74-106); Phosphorus 3.1 mg/dL (2.5-4.9); Potassium 4.1 mmol/L (3.5-5.1); Sodium Level 136 mmol/L (136-145)
[2019-06-18 15:57] LABS: Tacrolimus (FK506) 6.4 ng/mL (2.0-20.0)
== END 2019-06-17 18:00 | disposition home or self-care (01) ==
LOC: LAB 08:28
PROVIDERS: Family Provider Family Medicine; PCP Family Medicine
DX: Z94.0 Kidney transplant status (principal); D89.9 Disorder involving the immune mechanism, unspecified; Z13.89 Encounter for screening for other disorder
CPT/HCPCS: 36415; 80069; 80197; 82570; 84156; 85027

== ENCOUNTER 2019-06-22 17:10 | Emergency (ER) | payer OTHER, MEDICARE, SELFPAY ==
[2019-06-22 17:11] VITALS: BP 155/80; PULSE 79; RESP 16; TEMP 35.9; BMI 19.5
[2019-06-22 17:13] VITALS: BP 155/80; PULSE 79; RESP 16; TEMP 35.9
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
== END 2019-06-22 18:17 | disposition home or self-care (01) ==
LOC: ED 18:05
PROVIDERS: Emergency Provider Emergency Medicine; PCP Family Medicine
DX: S16.1XXA Strain of muscle, fascia and tendon at neck level, initial encounter (principal); M62.838 Other muscle spasm; Z94.0 Kidney transplant status; Z79.899 Other long term (current) drug therapy; V43.53XA Car driver injured in collision with pick-up truck in traffic accident, initial encounter; Y93.I9 Activity, other involving external motion; Y92.410 Unspecified street and highway as the place of occurrence of the external cause; Y99.8 Other external cause status
CPT/HCPCS: 99282

== ENCOUNTER → 2019-12-01 | Outpatient (CLI) | payer MEDICARE, OTHER, SELFPAY ==
[2019-12-01 08:55] LABS: Hematocrit 40.7 % (37-47); Hemoglobin 13.8 g/dL (12.0-15.0); Mean Corp Hgb Conc 33.9 g/dL (32-36); Mean Corpuscular Hgb 32.7 pg (27.0-32.0); Mean Corpuscular Volume 96.4 fL (81-99); Mean Platelet Vol. 9.9 fl (6.2-12.0); Platelet Count 129 K/mm3 (150-450); RBC Distribution Width CV 11.7 % (11.6-14.6); RBC Distribution Width SD 41.2 fl (35.1-43.9); Red Blood Count 4.22 M/mm3 (4.2-5.4); White Blood Count 3.8 K/mm3 (4.4-11.0)
[2019-12-01 09:07] LABS: Albumin, Serum 3.5 g/dL (3.2-5.0); BUN 18 mg/dL (7-18); Calcium,Total 9.6 mg/dL (8.5-10.1); Chloride 99 mmol/L (98-107); Creatinine, Serum 0.95 mg/dL (0.55-1.02); EST Glomerular Filtration Rate 62 mL/min (>60); Est Glom Filt Rate - Afr Amer 75 mL/min (>60); Glucose 135 mg/dL (74-106); Phosphorus 2.6 mg/dL (2.5-4.9); Potassium 4.3 mmol/L (3.5-5.1); Sodium Level 133 mmol/L (136-145)
[2019-12-01 09:12] LABS: Protein, Urine (Random) 17.8 mg/dL (<11.9); Protein:Creat Ratio 413 mg/g CRE (0-200)
[2019-12-03 12:35] LABS: Tacrolimus (FK506) 6.3 ng/mL (2.0-20.0)
== END | disposition home or self-care (01) ==
LOC: LAB 08:32
PROVIDERS: PCP Family Medicine; Referring Provider Internal Medicine; Visit Provider Internal Medicine
DX: D89.9 Disorder involving the immune mechanism, unspecified (principal); Z13.89 Encounter for screening for other disorder; Z94.0 Kidney transplant status
CPT/HCPCS: 36415; 80069; 80197; 82570; 84156; 85027

== ENCOUNTER 2019-12-06 23:10 | Emergency (ER) | payer MEDICARE, OTHER, SELFPAY ==
[2019-12-06 23:12] VITALS: BP 142/97; PULSE 99; RESP 16; TEMP 38.3; O2SAT 96; BMI 19.9
--- NOTE | 2019-12-06 23:37 | ED.VIS.GEN ---
History of Present Illness Chief Complaint: Fever Narrative: Patient noticed a fever tonight. She has no cough or congestion or shortness of breath she has no chest pain she has no rash she has no abdominal pain and she has no dysuria. She is a kidney transplant patient secondary to polycystic kidney disease. She has had her kidney transplant for about 8 years and has no issues. She has felt somewhat ill over the past few days has been drinking water but has had decreased appetite. Past Medical History - Allergies and Home Meds Allergies/Adverse Reactions: Allergies amoxicillin trihydrate [From Augmentin] Allergy (Verified 12/06/19 23:11) Hives potassium clavulanate [From Augmentin] Allergy (Verified 12/06/19 23:11) Hives Primary Care Physician: Irineo Leonardo III, MD [Primary Care Provider] - Past Medical History: - - Polycystic kidney disease status post kidney transplant, she is on rejection medication she is taking them every day. 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 Smoking Status: Never smoker - Family History Maternal Family History: Reports: Diabetes Paternal Family History: Reports: Hypertension Review of Systems All systems negative except as indicated General: Reports: Fever Eyes: Denies: Visual changes - bilaterally ENT: Denies: Bilateral ear pain, Rhinorrhea, Sore throat Cardiovascular: Denies: Chest pain Respiratory: Denies: Dyspnea, Cough, Sputum Gastrointestinal: Denies: Abdominal pain, Nausea, Vomiting Musculoskeletal: Denies: Myalgias, Arthralgias, Back pain Skin: Denies: Rash Neurological: Denies: Headache, Weakness Endocrine: Denies: Polyuria, Polydipsia Allergy: Denies: Swelling of the mouth, Swelling of the tongue Physical Exam Vital Signs/Narrative: Vital Signs Temp Pulse Resp BP Pulse Ox 12/06/19 23:12 100.9 F H 99 16 142/97 H 96 General: - - Patient appears quite well, she does not appear in significant distress. She is quite pleasant she is sitting next to her in the room. Head: Normocephalic Eyes: Perrl ENT: - - Moist membranes no signs of severe dehydration. Neck: Supple Cardiovascular: Regular rate, Regular rhythm Respiratory: No distress, CTA bilaterally Abdomen: Soft, Nontender Back: Nontender, Normal Inspection Extremities: Nontender, No edema Skin: Normal color, No rash Neurological: Normal Strength, Normal Sensation Psychological: Normal affect Diagnostic/Tx/Re-eval - Medical Decision Making She has found to have a urinary tract infection her renal function is intact, she appears well there is no evidence of sepsis. I believe she can be discharged with oral antibiotics I will culture her urine if she gets worse she is to return. ED Disposition - Plan for ED Patient: Disposition: Home or Assisted Living Diagnosis: Polycystic kidney disease, Renal transplant, status post, UTI (urinary tract infection) Instructions: ED CYSTITIS Female Adult Prescriptions: Smz/Tmp Ds [Bactrim Ds] 1 tab PO BID #20 tab Transmission Status: Pending to [employer] #30 Referrals: Irineo Leonardo III, MD [Primary Care Provider] - 2 Days
--- NOTE | 2019-12-07 00:03 | RAD_ITS ---
STUDY: X-RAY CHEST REASON FOR EXAM: Female, 69 years old. FEVER AND FATIGUE X 1 DAY -- HX OF KIDNEY TRANSPLANT APPROX 8 YRS AGO -- C/O NO CHEST PROBLEMS TECHNIQUE: Single AP portable view of the chest. COMPARISON: None. FINDINGS: The lungs are clear and expanded. There is no demonstrated pleural abnormality. Normal size heart. Normal mediastinum and chuy. Normal visualized pulmonary arteries. There is atherosclerotic calcification of the aortic arch with tortuosity. Normal visualized thoracic spine. There is degenerative osteoarthritis of the bilateral shoulders. There is no demonstrated abnormality of the visualized soft tissue structures of the upper abdomen. RAD/Chest 1 View (Portable) IMPRESSION: Degenerative changes, as described above. No demonstrated acute cardiopulmonary process. Electronically Signed: Debra Buck, at 1:02 EDT Tel , Service support ,
[2019-12-07 00:21] LABS: Bacteria 0 SEEN /hpf (None Seen); Mucous, Urine 0 SEEN /hpf (<or=2+); Squamous Epithelial Cells - UA 0 SEEN /hpf (5-10)
[2019-12-07 00:22] LABS: Absolute Lymphocyte Count 0.79 X10^3/uL (0.83-4.51); Absolute Neutrophil Count 6.8 X10^3/uL (2.0-7.7); Basophil# 0.01 X10^3/uL; Basophil% 0.1 % (0-1); Eosinophil# 0.01 X10^3/uL; Eosinophils% 0.1 % (0-5); Hematocrit 35.6 % (37-47); Lymphocyte # 0.79 X10^3/ul (4.0); Lymphocyte % 9.5 % (19-41); Mean Corp Hgb Conc 33.7 g/dL (32-36); Mean Corpuscular Hgb 32.5 pg (27.0-32.0); Mean Corpuscular Volume 96.5 fL (81-99); Mean Platelet Vol. 9.8 fl (6.2-12.0); Monocyte# 0.65 X10^3/uL; Monocyte% 7.8 % (0-10); NRBC Flagged by Analyzer 0 % (0-5); Neutrophil # 6.78 X10^3/uL (2.7-7.7); Neutrophil % 81.9 % (47-70); POSITIVE MORPHOLOGY YES; Platelet Count 148 K/mm3 (150-450); RBC Distribution Width CV 11.5 % (11.6-14.6); RBC Distribution Width SD 40.8 fl (35.1-43.9); Red Blood Count 3.69 M/mm3 (4.2-5.4); White Blood Count 8.3 K/mm3 (4.4-11.0)
[2019-12-07 00:27] LABS: Color, Urine Yellow (Yellow); Glucose, Dipstick Normal (Normal); Ketone-Dipstick Negative (Negative); Leukocyte Esterase-Dipstick 500 /ul (Negative); Nitrite-Dipstick Negative (Negative); Occult Blood-Urine 25 /ul (Negative); Protein-Dipstick 15 mg/dl (Negative); Urine Bilirubin Dipstick Negative (Negative); Urine Clarity Clear (Clear); Urine Urobilinogen Normal (Normal)
[2019-12-07 00:40] LABS: AST(SGOT) 16 U/L (15-37); Alanine Aminotransfer ALT/SGPT 13 U/L (13-56); Alkaline Phosphatase 73 U/L (45-117); Anion Gap 7 (5-15); BUN 14 mg/dL (7-18); BUN/Creat Ratio 15.3 RATIO (10-20); Calcium,Total 8.7 mg/dL (8.5-10.1); Chloride 97 mmol/L (98-107); Creatinine, Serum 0.91 mg/dL (0.55-1.02); EST Glomerular Filtration Rate 64 mL/min (>60); Est Glom Filt Rate - Afr Amer 78 mL/min (>60); Estimated Creatinine Clearance 53.26 ml/min; Globulin 3.1 g/dL (2.2-4.2); Glucose 152 mg/dL (74-106); Protein, Total 6.1 g/dL (6.4-8.2); Sodium Level 130 mmol/L (136-145)
[2019-12-07 00:43] LABS: Differential Indicated SCAN CRITERIA MET; Red Blood Cells-Urine 0-5 SEEN /hpf (0-5); White Blood Cells 10-25 SEEN /hpf (0-5)
[2019-12-07 01:16] LABS: Differential Comment SCANNED
[2019-12-07] MEDS: Ceftriaxone 1 GM/50 ML BAG IV (01:46)
[2019-12-07 03:15] VITALS: BP 135/75; PULSE 85; RESP 16
== END 2019-12-07 03:17 | disposition home or self-care (01) ==
PROVIDERS: Emergency Provider Emergency Medicine; PCP Family Medicine
DX: N39.0 Urinary tract infection, site not specified (principal); Q61.3 Polycystic kidney, unspecified; Z94.0 Kidney transplant status; Z79.899 Other long term (current) drug therapy
CPT/HCPCS: 36415; 71045; 80053; 81001; 85025; 87040; 87077; 87086; 87088; 87186; 87635; 96365; 99282; A4216; U0003

== ENCOUNTER 2019-12-28 08:37 | Outpatient (RCR) | payer MEDICARE, OTHER, SELFPAY ==
[2019-12-28 09:05] LABS: Hematocrit 43.1 % (37-47); Mean Corp Hgb Conc 32.5 g/dL (32-36); Mean Corpuscular Volume 98.6 fL (81-99); Mean Platelet Vol. 9.1 fl (6.2-12.0); Platelet Count 136 K/mm3 (150-450); RBC Distribution Width CV 13.1 % (11.6-14.6); RBC Distribution Width SD 46.9 fl (35.1-43.9); Red Blood Count 4.37 M/mm3 (4.2-5.4); White Blood Count 4.2 K/mm3 (4.4-11.0)
[2019-12-28 09:37] LABS: Albumin, Serum 3.5 g/dL (3.2-5.0); BUN 20 mg/dL (7-18); BUN/Creat Ratio 19.4 RATIO (10-20); Calcium,Total 9.9 mg/dL (8.5-10.1); Chloride 105 mmol/L (98-107); Creatinine, Serum 1.03 mg/dL (0.55-1.02); EST Glomerular Filtration Rate 56 mL/min (>60); Est Glom Filt Rate - Afr Amer 68 mL/min (>60); Glucose 123 mg/dL (74-106); Phosphorus 3.2 mg/dL (2.5-4.9); Potassium 4.3 mmol/L (3.5-5.1); Sodium Level 137 mmol/L (136-145)
[2019-12-30 12:30] LABS: Tacrolimus (FK506) 6.4 ng/mL (2.0-20.0)
== END 2019-12-28 18:00 | disposition home or self-care (01) ==
LOC: LAB 08:37
PROVIDERS: Family Provider Family Medicine; PCP Family Medicine
DX: Z94.0 Kidney transplant status (principal); Z13.89 Encounter for screening for other disorder
CPT/HCPCS: 36415; 80069; 80197; 85027

== ENCOUNTER 2020-02-15 08:35 | Outpatient (RCR) | payer MEDICARE, OTHER, SELFPAY ==
[2020-02-15 09:21] LABS: Absolute Neutrophil Count 2.4 X10^3/uL (2.0-7.7); Basophil# 0.02 X10^3/uL; Basophil% 0.5 % (0-1); Eosinophil# 0.02 X10^3/uL; Eosinophils% 0.5 % (0-5); Hematocrit 44.8 % (37-47); Hemoglobin 14.6 g/dL (12.0-15.0); Lymphocyte % 28.8 % (19-41); Mean Corp Hgb Conc 32.6 g/dL (32-36); Mean Corpuscular Hgb 31.6 pg (27.0-32.0); Mean Platelet Vol. 9.8 fl (6.2-12.0); Monocyte% 7.9 % (0-10); NRBC Flagged by Analyzer 0 % (0-5); Neutrophil # 2.37 X10^3/uL (2.7-7.7); Platelet Count 131 K/mm3 (150-450); RBC Distribution Width CV 12.6 % (11.6-14.6); RBC Distribution Width SD 45.4 fl (35.1-43.9); Red Blood Count 4.62 M/mm3 (4.2-5.4); White Blood Count 3.8 K/mm3 (4.4-11.0)
[2020-02-15 09:34] LABS: Protein, Urine (Random) 12.4 mg/dL (<11.9); Protein:Creat Ratio 351 mg/g CRE (0-200)
[2020-02-15 09:46] LABS: Albumin, Serum 3.5 g/dL (3.2-5.0); BUN 16 mg/dL (7-18); BUN/Creat Ratio 18.2 RATIO (10-20); Calcium,Total 9.7 mg/dL (8.5-10.1); Chloride 100 mmol/L (98-107); Creatinine, Serum 0.88 mg/dL (0.55-1.02); EST Glomerular Filtration Rate 67 mL/min (>60); Est Glom Filt Rate - Afr Amer 82 mL/min (>60); Glucose 113 mg/dL (74-106); Phosphorus 3.3 mg/dL (2.5-4.9); Sodium Level 135 mmol/L (136-145)
[2020-02-18 08:02] LABS: Tacrolimus (FK506) 4.1 ng/mL (2.0-20.0)
== END 2020-02-15 18:00 | disposition home or self-care (01) ==
LOC: LAB 08:35
PROVIDERS: Family Provider Family Medicine; PCP Family Medicine
DX: Z13.89 Encounter for screening for other disorder (principal); D89.9 Disorder involving the immune mechanism, unspecified; Z94.0 Kidney transplant status
CPT/HCPCS: 36415; 80069; 80197; 82570; 84156; 85025

== ENCOUNTER 2020-09-25 09:12 | Outpatient (RCR) | payer MEDICARE, OTHER, SELFPAY ==
[2020-09-25 09:43] LABS: Absolute Lymphocyte Count 0.76 X10^3/uL (0.83-4.51); Absolute Neutrophil Count 2.8 X10^3/uL (2.0-7.7); Basophil# 0.02 X10^3/uL; Basophil% 0.5 % (0-1); Eosinophil# 0.01 X10^3/uL; Eosinophils% 0.3 % (0-5); Hematocrit 41.3 % (37-47); Hemoglobin 13.6 g/dL (12.0-15.0); Lymphocyte # 0.76 X10^3/ul (0.83-4.51); Lymphocyte % 19.7 % (19-41); Mean Corp Hgb Conc 32.9 g/dL (32-36); Mean Corpuscular Hgb 31.2 pg (27.0-32.0); Mean Corpuscular Volume 94.7 fL (81-99); Mean Platelet Vol. 8.9 fl (6.2-12.0); Monocyte# 0.29 X10^3/uL; Monocyte% 7.5 % (0-10); NRBC Flagged by Analyzer 0 % (0-5); Neutrophil # 2.75 X10^3/uL (2.7-7.7); Neutrophil % 71.5 % (47-70); Platelet Count 151 K/mm3 (150-450); RBC Distribution Width CV 12.2 % (11.6-14.6); RBC Distribution Width SD 43.2 fl (35.1-43.9); Red Blood Count 4.36 M/mm3 (4.2-5.4); White Blood Count 3.9 K/mm3 (4.4-11.0)
[2020-09-25 10:05] LABS: Albumin, Serum 3.4 g/dL (3.2-5.0); BUN 17 mg/dL (7-18); BUN/Creat Ratio 19.3 RATIO (10-20); Calcium,Total 9.3 mg/dL (8.5-10.1); Chloride 102 mmol/L (98-107); Creatinine, Serum 0.88 mg/dL (0.55-1.02); EST Glomerular Filtration Rate 67 mL/min (>60); Est Glom Filt Rate - Afr Amer 81 mL/min (>60); Glucose 133 mg/dL (74-106); Phosphorus 2.9 mg/dL (2.5-4.9); Potassium 4.2 mmol/L (3.5-5.1); Sodium Level 136 mmol/L (136-145)
== END 2020-09-25 18:00 | disposition home or self-care (01) ==
LOC: LAB 09:12
PROVIDERS: Family Provider Family Medicine; PCP Family Medicine
DX: D84.9 Immunodeficiency, unspecified (principal); Z94.0 Kidney transplant status
CPT/HCPCS: 36415; 80069; 80197; 85025

== ENCOUNTER 2021-04-09 13:42 | Emergency (ER) | payer MEDICARE, OTHER, SELFPAY ==
[2021-04-09 13:44] VITALS: BP 108/72; PULSE 63; RESP 17; TEMP 36; O2SAT 96; BMI 17.9
--- NOTE | 2021-04-09 14:00 | RAD_ITS ---
STUDY: X-RAY - LEFT SHOULDER REASON FOR EXAM: Female, 70 years old. FALL TECHNIQUE: 2 view(s) of the shoulder. COMPARISON: None. FINDINGS: Normal glenohumeral articulation. There is hypertrophic osteoarthrosis of the acromioclavicular joint with inferior osseous spur formation. Normal acromion. Impacted fracture of the surgical neck of the humerus. Chondrocalcinosis. The soft tissue structures are unremarkable. Normal visualized pulmonary apex. RAD/Shoulder min 2 Views IMPRESSION: Impacted fracture of the surgical neck of the humerus. Chondrocalcinosis. Electronically Signed: Kali Parra MD at 14:32 EST ,
[2021-04-09] MEDS: oxyCODONE 5 MG Tablet PO (15:08)
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
[2021-04-09 15:25] VITALS: RESP 18
--- NOTE | 2021-04-10 12:00 | CASEMGMT ---
LUCILLE FORD ED follow-up: Date of ER visit: 04/09/21 Presenting ER complaint: fall LUCILLE FORD placed call to patient's telephone number listed on demographics and patient answered. LUCILLE FORD introduced self and role at [facility]. Patient reports she is in a comfortable position at this time and pain is under control when taking prescribed pain medication. Denies pain at time of call. Patient reports pain medication causing some nausea. LUCILLE FORD instructed patient to be sure to take medication with food to decrease chance of nausea. Patient reports she has decided to take only a half tablet at time of next dose and does believe half tablet would be sufficient for pain control. Patient instructed on proper sling use and admits to hand swelling and poor sling positioning with hand dangling from end of sling. Patient voiced understanding and reports her and daughter are at home with her and available to help reposition sling. Patient instructed on ice use. Patient has follow-up appointment scheduled with on 04/12/2021. Patient denies further questions or concerns and expressed thanks for follow-up call. LUCILLE Wagner CM
== END 2021-04-09 15:25 | disposition home or self-care (01) ==
LOC: ED 14:48
PROVIDERS: Emergency Provider Student in an Organized Health Care Education/Training Program; PCP Family Medicine; Visit Provider Student in an Organized Health Care Education/Training Program
DX: S42.213A Unspecified displaced fracture of surgical neck of unspecified humerus, initial encounter for closed fracture (principal); W00.1XXA Fall from stairs and steps due to ice and snow, initial encounter; Y93.9 Activity, unspecified; Y92.9 Unspecified place or not applicable
CPT/HCPCS: 73030; 99283; A4216

== ENCOUNTER → 2021-08-29 | Outpatient (CLI) | payer MEDICARE, OTHER, SELFPAY ==
[2021-08-29 09:50] LABS: Color, Urine Yellow (Yellow); Glucose, Dipstick Normal (Normal); Ketone-Dipstick Negative (Negative); Leukocyte Esterase-Dipstick 25 /ul (Negative); Nitrite-Dipstick Negative (Negative); Occult Blood-Urine 10 /ul (Negative); Protein-Dipstick Negative (Negative); Urine Bilirubin Dipstick Negative (Negative); Urine Clarity Clear (Clear); Urine Urobilinogen Normal (Normal)
[2021-08-29 09:53] LABS: Hematocrit 41.9 % (37-47); Hemoglobin 14.2 g/dL (12.0-15.0); Mean Corp Hgb Conc 33.9 g/dL (32-36); Mean Corpuscular Hgb 32.5 pg (27.0-32.0); Mean Corpuscular Volume 95.9 fL (81-99); Mean Platelet Vol. 9.7 fl (6.2-12.0); Platelet Count 118 K/mm3 (150-450); RBC Distribution Width CV 12.4 % (11.6-14.6); RBC Distribution Width SD 43.9 fl (35.1-43.9); Red Blood Count 4.37 M/mm3 (4.2-5.4); White Blood Count 2.8 K/mm3 (4.4-11.0)
[2021-08-29 10:04] LABS: Protein, Urine (Random) 7.5 mg/dL (<11.9); Protein:Creat Ratio 306 mg/g CRE (0-200)
[2021-08-29 10:20] LABS: Albumin, Serum 3.5 g/dL (3.2-5.0); BUN 15 mg/dL (7-18); BUN/Creat Ratio 18.1 RATIO (10-20); Calcium,Total 9.2 mg/dL (8.5-10.1); Chloride 102 mmol/L (98-107); Creatinine, Serum 0.83 mg/dL (0.55-1.02); EST Glomerular Filtration Rate 72 mL/min (>60); Est Glom Filt Rate - Afr Amer 87 mL/min (>60); Glucose 125 mg/dL (74-106); Phosphorus 2.7 mg/dL (2.5-4.9); Potassium 4.2 mmol/L (3.5-5.1); Sodium Level 136 mmol/L (136-145)
[2021-09-02 20:21] LABS: Tacrolimus (FK506) 5.3 ng/mL (2.0-20.0)
== END | disposition home or self-care (01) ==
LOC: LAB 08:50
PROVIDERS: PCP Family Medicine; Visit Provider Internal Medicine
DX: D84.9 Immunodeficiency, unspecified (principal)
CPT/HCPCS: 36415; 80069; 80197; 81002; 82570; 84156; 85027

== ENCOUNTER 2022-04-01 09:17 | Outpatient (RCR) | payer MEDICARE, OTHER, SELFPAY ==
[2022-04-01 10:18] LABS: Hematocrit 43.7 % (37-47); Hemoglobin 14.6 g/dL (12.0-15.0); Mean Corp Hgb Conc 33.4 g/dL (32-36); Mean Corpuscular Hgb 32.2 pg (27.0-32.0); Mean Corpuscular Volume 96.3 fL (81-99); Mean Platelet Vol. 9.6 fl (6.2-12.0); Platelet Count 124 K/mm3 (150-450); RBC Distribution Width CV 12.6 % (11.6-14.6); RBC Distribution Width SD 44.4 fl (35.1-43.9); Red Blood Count 4.54 M/mm3 (4.2-5.4); White Blood Count 4.1 K/mm3 (4.4-11.0)
[2022-04-01 10:24] LABS: Bacteria 0 SEEN /hpf (None Seen); Mucous, Urine 0 SEEN /hpf (<or=2+); Red Blood Cells-Urine 0 SEEN /hpf (0-5); Squamous Epithelial Cells - UA 0 SEEN /hpf (5-10); White Blood Cells 0 SEEN /hpf (0-5)
[2022-04-01 10:56] LABS: Albumin, Serum 3.5 g/dL (3.2-5.0); BUN 19 mg/dL (7-18); BUN/Creat Ratio 17.8 RATIO (10-20); Calcium,Total 9.7 mg/dL (8.5-10.1); Chloride 100 mmol/L (98-107); Creatinine, Serum 1.07 mg/dL (0.55-1.02); EST Glomerular Filtration Rate 53 mL/min (>60); Est Glom Filt Rate - Afr Amer 65 mL/min (>60); Glucose 142 mg/dL (74-106); Phosphorus 2.9 mg/dL (2.5-4.9); Potassium 3.9 mmol/L (3.5-5.1); Sodium Level 136 mmol/L (136-145)
[2022-04-01 12:52] LABS: Color, Urine Yellow (Yellow); Glucose, Dipstick Normal (Normal); Ketone-Dipstick Negative (Negative); Leukocyte Esterase-Dipstick Negative /ul (Negative); Nitrite-Dipstick Negative (Negative); Occult Blood-Urine Negative /ul (Negative); Protein-Dipstick Negative (Negative); Urine Bilirubin Dipstick Negative (Negative); Urine Clarity Sl. Cloudy (Clear); Urine Urobilinogen Normal (Normal)
== END 2022-04-01 18:00 | disposition home or self-care (01) ==
LOC: LAB 09:17
PROVIDERS: PCP Family Medicine
DX: Z94.0 Kidney transplant status (principal); R10.30 Lower abdominal pain, unspecified; R31.29 Other microscopic hematuria
CPT/HCPCS: 36415; 80069; 80197; 81001; 85027; 87086

== ENCOUNTER 2022-10-08 08:23 | Outpatient (RCR) | payer MEDICARE, OTHER, SELFPAY ==
[2022-10-08 09:19] LABS: Absolute Lymphocyte Count 0.89 X10^3/uL (0.83-4.51); Absolute Neutrophil Count 2.6 X10^3/uL (2.0-7.7); Basophil# 0.02 X10^3/uL; Basophil% 0.5 % (0-1); Eosinophil# 0.03 X10^3/uL; Eosinophils% 0.8 % (0-5); Hemoglobin 14.4 g/dL (12.0-15.0); Lymphocyte # 0.89 X10^3/ul (0.83-4.51); Lymphocyte % 22.9 % (19-41); Mean Corp Hgb Conc 32.7 g/dL (32-36); Mean Corpuscular Hgb 31.7 pg (27.0-32.0); Mean Corpuscular Volume 96.9 fL (81-99); Mean Platelet Vol. 9.7 fl (6.2-12.0); Monocyte# 0.29 X10^3/uL; Monocyte% 7.5 % (0-10); NRBC Flagged by Analyzer 0 % (0-5); Neutrophil # 2.63 X10^3/uL (2.7-7.7); Neutrophil % 67.8 % (47-70); Platelet Count 127 K/mm3 (150-450); RBC Distribution Width CV 12.6 % (11.6-14.6); RBC Distribution Width SD 44.7 fl (35.1-43.9); Red Blood Count 4.54 M/mm3 (4.2-5.4); White Blood Count 3.9 K/mm3 (4.4-11.0)
[2022-10-08 09:44] LABS: Albumin, Serum 3.5 g/dL (3.2-5.0); BUN 11 mg/dL (7-18); BUN/Creat Ratio 11.1 RATIO (10-20); Calcium,Total 9.5 mg/dL (8.5-10.1); Chloride 103 mmol/L (98-107); Creatinine, Serum 0.99 mg/dL (0.55-1.02); EST Glomerular Filtration Rate 58 mL/min (>60); Est Glom Filt Rate - Afr Amer 70 mL/min (>60); Glucose 145 mg/dL (74-106); Potassium 4.2 mmol/L (3.5-5.1); Sodium Level 137 mmol/L (136-145)
[2022-10-12 00:06] LABS: Tacrolimus (FK506) 5.2 ng/mL (2.0-20.0)
== END 2022-10-08 18:00 | disposition home or self-care (01) ==
LOC: LAB 08:23
PROVIDERS: PCP Family Medicine
DX: Z94.0 Kidney transplant status
CPT/HCPCS: 36415; 80069; 80197; 85025

== ENCOUNTER → 2022-12-10 | Outpatient (CLI) | payer MEDICARE, OTHER, SELFPAY ==
[2022-12-10 13:35] LABS: Erythrocyte Sedimentation Rate 4 mm/hr (0-30)
[2022-12-10 13:37] LABS: Absolute Lymphocyte Count 0.65 X10^3/uL (0.83-4.51); Absolute Neutrophil Count 3.1 X10^3/uL (2.0-7.7); Basophil# 0.02 X10^3/uL; Basophil% 0.5 % (0-1); Eosinophil# 0.01 X10^3/uL; Eosinophils% 0.2 % (0-5); Hematocrit 44.2 % (37-47); Hemoglobin 14.4 g/dL (12.0-15.0); Lymphocyte # 0.65 X10^3/ul (0.83-4.51); Mean Corp Hgb Conc 32.6 g/dL (32-36); Mean Corpuscular Hgb 31.6 pg (27.0-32.0); Mean Corpuscular Volume 97.1 fL (81-99); Mean Platelet Vol. 9.7 fl (6.2-12.0); Monocyte# 0.22 X10^3/uL; Monocyte% 5.4 % (0-10); NRBC Flagged by Analyzer 0 % (0-5); Neutrophil # 3.14 X10^3/uL (2.7-7.7); Neutrophil % 77.4 % (47-70); Platelet Count 145 K/mm3 (150-450); RBC Distribution Width SD 46.5 fl (35.1-43.9); Red Blood Count 4.55 M/mm3 (4.2-5.4); White Blood Count 4.1 K/mm3 (4.4-11.0)
[2022-12-10 14:45] LABS: CRP 4.41 mg/L (0.0-3.0)
== END | disposition home or self-care (01) ==
LOC: LAB 12:38
PROVIDERS: PCP Family Medicine; Referring Provider Ophthalmology; Visit Provider Ophthalmology
DX: G45.3 Amaurosis fugax (principal)
CPT/HCPCS: 36415; 85025; 85652; 86140

== ENCOUNTER 2022-12-11 08:13 | Outpatient (RCR) | payer MEDICARE, OTHER, SELFPAY ==
[2022-12-11 09:34] LABS: Hematocrit 43.4 % (37-47); Hemoglobin 14.2 g/dL (12.0-15.0); Mean Corp Hgb Conc 32.7 g/dL (32-36); Mean Corpuscular Hgb 31.8 pg (27.0-32.0); Mean Corpuscular Volume 97.3 fL (81-99); Mean Platelet Vol. 9.7 fl (6.2-12.0); Platelet Count 141 K/mm3 (150-450); RBC Distribution Width CV 12.8 % (11.6-14.6); RBC Distribution Width SD 45.3 fl (35.1-43.9); Red Blood Count 4.46 M/mm3 (4.2-5.4)
[2022-12-11 09:58] LABS: Albumin, Serum 3.6 g/dL (3.2-5.0); BUN 15 mg/dL (7-18); BUN/Creat Ratio 14.4 RATIO (10-20); Calcium,Total 9.4 mg/dL (8.5-10.1); Chloride 105 mmol/L (98-107); Creatinine, Serum 1.04 mg/dL (0.55-1.02); EST Glomerular Filtration Rate 55 mL/min (>60); Est Glom Filt Rate - Afr Amer 67 mL/min (>60); Glucose 168 mg/dL (74-106); Phosphorus 2.4 mg/dL (2.5-4.9); Potassium 3.9 mmol/L (3.5-5.1); Sodium Level 138 mmol/L (136-145)
[2022-12-13 17:07] LABS: Tacrolimus (FK506) 3.2 ng/mL (2.0-20.0)
== END 2022-12-11 18:00 | disposition home or self-care (01) ==
LOC: LAB 08:13
PROVIDERS: PCP Family Medicine
DX: Z94.0 Kidney transplant status
CPT/HCPCS: 36415; 80069; 80197; 85027

== ENCOUNTER → 2022-12-19 | Outpatient (CLI) | payer MEDICARE, OTHER, SELFPAY ==
--- NOTE | 2022-12-19 09:49 | CDU_ITS ---
Reason For Study: Amaurosis Fugax Rt. Velocities/BP Lt. Velocities/BP Prox CCA 66.2/14.5 cm/sec. Prox CCA 79.6/17.3 cm/sec. Mid CCA 65.5/15.4 cm/sec. Mid CCA 60.1/16.6 cm/sec. Dist CCA 86.3/21.1 cm/sec. Dist CCA 58.4/19.2 cm/sec. Prox ICA 75.9/18.2 cm/sec. Prox ICA 64.6/26.5 cm/sec. Mid ICA 71.1/23.9 cm/sec. Mid ICA 69.5/27.8 cm/sec. Dist ICA 75.9/32.4 cm/sec. Dist ICA 75.3/24.8 cm/sec. Rt. ICA/CCA = 1.2. Lt. ICA/CCA = 1.3. Prox ECA 88.1/8.8 cm/sec. Prox ECA 104.5/16.7 cm/sec. Rt. Vert. 53.2/8.8 cm/sec. Lt. Vert. 50.0/13.7 cm/sec. Right Extracranial There is homogeneous, smooth atherosclerotic plaque noted in the right common carotid artery. There is homogeneous, smooth atherosclerotic plaque noted in the right internal carotid artery. There is intimal thickening but no significant atherosclerotic plaque noted in the right external carotid artery. Antegrade flow is noted in the right vertebral artery. Left Extracranial There is homogeneous, smooth atherosclerotic plaque noted in the left common carotid artery. There is heterogeneous, irregular atherosclerotic plaque noted in the left internal carotid artery. There is heterogeneous, irregular atherosclerotic plaque noted in the left external carotid artery. Antegrade flow is noted in the left vertebral artery. Procedure Carotid Duplex 13886. This is a Carotid Duplex examination using B-mode, color flow and specral Doppler. The exam was diagnostic. Exam performed in department. VL/Carotid Duplex Ultrasound Interpretation Summary Mild (<50%) stenosis right extracranial internal carotid. Mild (<50%) stenosis left extracranial internal carotid. Flow within the vertebral arteries is antegrade bilaterally. Ordering Physician: Hernando Zapien Referring Physician: Pete Medina Performed By: Lonny Clifton RVT
== END | disposition home or self-care (01) ==
LOC: CVS 09:48
PROVIDERS: PCP Family Medicine; Referring Provider Ophthalmology; Visit Provider Ophthalmology
DX: G45.3 Amaurosis fugax (principal)
CPT/HCPCS: 93880

== ENCOUNTER 2023-01-06 08:01 | Outpatient (RCR) | payer MEDICARE, OTHER, SELFPAY ==
[2023-01-06 08:26] LABS: Hematocrit 44.4 % (37-47); Hemoglobin 14.6 g/dL (12.0-15.0); Mean Corp Hgb Conc 32.9 g/dL (32-36); Mean Corpuscular Hgb 31.8 pg (27.0-32.0); Mean Corpuscular Volume 96.7 fL (81-99); Mean Platelet Vol. 9.7 fl (6.2-12.0); Platelet Count 121 K/mm3 (150-450); RBC Distribution Width SD 46.1 fl (35.1-43.9); Red Blood Count 4.59 M/mm3 (4.2-5.4); White Blood Count 3.1 K/mm3 (4.4-11.0)
[2023-01-06 09:00] LABS: Albumin, Serum 3.6 g/dL (3.2-5.0); BUN 16 mg/dL (7-18); BUN/Creat Ratio 13.7 RATIO (10-20); Calcium,Total 9.5 mg/dL (8.5-10.1); Chloride 104 mmol/L (98-107); Creatinine, Serum 1.17 mg/dL (0.55-1.02); EST Glomerular Filtration Rate 48 mL/min (>60); Est Glom Filt Rate - Afr Amer 58 mL/min (>60); Glucose 120 mg/dL (74-106); Phosphorus 2.6 mg/dL (2.5-4.9); Potassium 3.9 mmol/L (3.5-5.1); Sodium Level 137 mmol/L (136-145)
[2023-01-08 11:09] LABS: Tacrolimus (FK506) 4.9 ng/mL (2.0-20.0)
== END 2023-01-16 18:00 | disposition home or self-care (01) ==
LOC: LAB 08:01
PROVIDERS: PCP Family Medicine
DX: Z94.0 Kidney transplant status
CPT/HCPCS: 36415; 80069; 80197; 85027

== ENCOUNTER 2023-12-31 09:32 | Outpatient (RCR) | payer MEDICARE, OTHER, SELFPAY ==
[2023-12-31 10:23] LABS: Hematocrit 40.4 % (37-47); Hemoglobin 13.7 g/dL (12.0-15.0); Mean Corp Hgb Conc 33.9 g/dL (32-36); Mean Corpuscular Hgb 32.2 pg (27.0-32.0); Mean Corpuscular Volume 94.8 fL (81-99); Mean Platelet Vol. 9.8 fl (6.2-12.0); Platelet Count 125 K/mm3 (150-450); RBC Distribution Width CV 12.9 % (11.6-14.6); Red Blood Count 4.26 M/mm3 (4.2-5.4); White Blood Count 4.5 K/mm3 (4.4-11.0)
[2023-12-31 10:48] LABS: Albumin, Serum 3.3 g/dL (3.2-5.0); BUN 15 mg/dL (7-18); BUN/Creat Ratio 15.5 RATIO (10-20); Calcium,Total 8.9 mg/dL (8.5-10.1); Chloride 99 mmol/L (98-107); Creatinine, Serum 0.97 mg/dL (0.55-1.02); EST Glomerular Filtration Rate 60 mL/min (>60); Est Glom Filt Rate - Afr Amer 72 mL/min (>60); Glucose 181 mg/dL (74-106); Phosphorus 2.1 mg/dL (2.5-4.9); Sodium Level 132 mmol/L (136-145)
[2023-12-31 11:19] LABS: Protein, Urine (Random) 38.3 mg/dL (<11.9)
[2024-01-04 00:07] LABS: Tacrolimus (FK506) 5.1 ng/mL (2.0-20.0)
== END 2024-01-17 18:00 | disposition home or self-care (01) ==
LOC: LAB 09:32
PROVIDERS: PCP Family Medicine
DX: Z94.0 Kidney transplant status
CPT/HCPCS: 36415; 80069; 80197; 82570; 84156; 85027

== ENCOUNTER 2024-07-13 08:10 | Outpatient (RCR) | payer MEDICARE, OTHER, SELFPAY ==
[2024-07-13 08:53] LABS: Hematocrit 42.1 % (37-47); Hemoglobin 14.3 g/dL (12.0-15.0); Mean Corpuscular Hgb 32.6 pg (27.0-32.0); Mean Corpuscular Volume 96.1 fL (81-99); Mean Platelet Vol. 9.7 fl (6.2-12.0); Platelet Count 125 K/mm3 (150-450); RBC Distribution Width CV 12.7 % (11.6-14.6); RBC Distribution Width SD 45.1 fl (35.1-43.9); Red Blood Count 4.38 M/mm3 (4.2-5.4); White Blood Count 3.2 K/mm3 (4.4-11.0)
[2024-07-13 09:19] LABS: Protein, Urine (Random) 9.9 mg/dL (0.0-12.0)
[2024-07-13 10:00] LABS: Albumin, Serum 3.8 g/dL (3.4-4.8); Anion Gap 9 (5-15); BUN 23 mg/dL (4-19); BUN/Creat Ratio 20.4 RATIO (10-20); Calcium,Total 9.7 mg/dL (7.6-11.0); Carbon Dioxide 25.5 mmol/L (21.0-32.0); Chloride 99 mmol/L (98-108); Creatinine, Serum 1.13 mg/dL (0.70-1.20); EST Glomerular Filtration Rate 50 (>60); Glucose 169 mg/dL (70-99); Phosphorus 3.3 mg/dL (2.7-4.5); Potassium 4.4 mmol/L (3.3-5.1); Sodium Level 134 mmol/L (133-145)
[2024-07-16 22:07] LABS: Tacrolimus (FK506) 5.8 ng/mL (5.0-20.0)
== END 2024-07-13 18:00 | disposition home or self-care (01) ==
LOC: LAB 08:10
PROVIDERS: PCP Family Medicine
DX: Z94.0 Kidney transplant status
CPT/HCPCS: 36415; 80069; 80197; 82570; 84156; 85027

== ENCOUNTER 2024-10-25 08:22 | Outpatient (RCR) | payer MEDICARE, OTHER, SELFPAY ==
[2024-10-25 09:17] LABS: Hematocrit 43.3 % (37-47); Hemoglobin 14.9 g/dL (12.0-15.0); Mean Corp Hgb Conc 34.4 g/dL (32-36); Mean Corpuscular Volume 94.3 fL (81-99); Mean Platelet Vol. 9.8 fl (6.2-12.0); Platelet Count 138 K/mm3 (150-450); RBC Distribution Width CV 12.6 % (11.6-14.6); RBC Distribution Width SD 43.5 fl (35.1-43.9); Red Blood Count 4.59 M/mm3 (4.2-5.4); White Blood Count 3.4 K/mm3 (4.4-11.0)
[2024-10-25 09:45] LABS: Albumin, Serum 4.0 g/dL (3.4-4.8); Anion Gap 9 (5-15); BUN 18 mg/dL (4-19); BUN/Creat Ratio 16.5 RATIO (10-20); Calcium,Total 9.6 mg/dL (7.6-11.0); Carbon Dioxide 26.0 mmol/L (21.0-32.0); Chloride 100 mmol/L (98-108); Glucose 146 mg/dL (70-99); Potassium 4.4 mmol/L (3.3-5.1)
[2024-10-25 09:47] LABS: Creatinine, Urine (random) 37.90 mg/dL (28.00-217.00); Protein, Urine (Random) 13.7 mg/dL (0.0-12.0); Protein:Creat Ratio 361 mg/g CRE (0-200)
[2024-10-25 14:11] LABS: PTHIN 70 pg/mL (11-61)
[2024-10-25 14:34] LABS: Magnesium 1.9 mg/dL (1.5-2.2); Vitamin D,25 Hydroxy 61.8 ng/mL (30-100)
== END 2024-11-16 18:00 | disposition home or self-care (01) ==
LOC: LAB 08:22
PROVIDERS: PCP Family Medicine
DX: Z94.0 Kidney transplant status; Z48.298 Encounter for aftercare following other organ transplant; E55.9 Vitamin D deficiency, unspecified
CPT/HCPCS: 36415; 80069; 80197; 82306; 82570; 83735; 83970; 84156; 85027

== ENCOUNTER 2024-12-28 09:52 | Outpatient (RCR) | payer MEDICARE, OTHER, SELFPAY ==
[2024-12-28 10:48] LABS: Hematocrit 40.5 % (37-47); Hemoglobin 14.0 g/dL (12.0-15.0); Mean Corp Hgb Conc 34.6 g/dL (32-36); Mean Corpuscular Volume 94.0 fL (81-99); Mean Platelet Vol. 9.8 fl (6.2-12.0); Platelet Count 134 K/mm3 (150-450); RBC Distribution Width CV 12.7 % (11.6-14.6); RBC Distribution Width SD 43.9 fl (35.1-43.9); Red Blood Count 4.31 M/mm3 (4.2-5.4); White Blood Count 3.9 K/mm3 (4.4-11.0)
[2024-12-28 11:02] LABS: Creatinine, Urine (random) 21.10 mg/dL (28.00-217.00); Protein, Urine (Random) 28.6 mg/dL (0.0-12.0)
[2024-12-28 11:16] LABS: PTHIN 78 pg/mL (11-61)
[2024-12-28 11:34] LABS: Albumin, Serum 4.0 g/dL (3.4-4.8); Anion Gap 9 (5-15); BUN 17 mg/dL (4-19); BUN/Creat Ratio 17.2 RATIO (10-20); Calcium,Total 9.5 mg/dL (7.6-11.0); Carbon Dioxide 26.8 mmol/L (21.0-32.0); Chloride 97 mmol/L (98-108); Glucose 157 mg/dL (70-99); Magnesium 1.8 mg/dL (1.5-2.2); Potassium 4.2 mmol/L (3.3-5.1); Vitamin D,25 Hydroxy 64.9 ng/mL (30-100)
== END 2025-01-15 18:00 | disposition home or self-care (01) ==
LOC: LAB 09:52
PROVIDERS: PCP Family Medicine
DX: Z94.0 Kidney transplant status; Z48.298 Encounter for aftercare following other organ transplant; E55.9 Vitamin D deficiency, unspecified
CPT/HCPCS: 36415; 80069; 80197; 82306; 82570; 83735; 83970; 84156; 85027